=== PATIENT | male | born 1925 | race Hispanic/Latino ===

== ENCOUNTER 2016-11-14 20:22 | Inpatient (IN) | payer MEDICARE ==
[2016-11-14 20:23] VITALS: BMI 23.3
--- NOTE | 2016-11-14 21:17 | ED PDOC ---
HPI: Trauma/Fall - HPI Time Seen by Provider: 11/14/16 20:33 Chief Complaint (Nursing): Fever Chief Complaint (Provider): Fever History Per: Family ( and daughter) History/Exam Limitations: no limitations Onset/Duration Of Symptoms: Mins (prior to arrival) Additional Complaint(s): Mik Milligan is a 89 year old male with previous medical history of dementia and atrial fibrillation, who presents to the emergency department for an evaluation of 102 degree fever (tympanic reading) associated with fall type injuries, right foot pain, excessive gas and intermittent right-sided abdominal pain. Denied cough, nausea, vomiting, head injury, chest pain or shortness of breath. Per daughter, patient has been falling out of bed often due to movements while sleeping ongoing for 2-3 months. Patient's family reported giving Tylenol to patient to reduce fever prior to arrival and that most symptoms has resolved upon arrival to ED. PMD: Dustin Gresham MD Past Medical History Reviewed: Historical Data, Nursing Documentation, Vital Signs Vital Signs: Last Vital Signs Temp 99.5 F 11/14/16 21:27 Pulse 72 11/14/16 20:27 Resp 18 11/14/16 20:27 BP 111/69 11/14/16 20:27 Pulse Ox 94 L 11/15/16 00:06 - Medical History PMH: Anemia, Atrial Fibrillation, Cardia Arrhythmia, Dementia (with periods of agitation and confusion) Denies: HIV, Chronic Kidney Disease - Surgical History Surgical History: Pacemaker - Family History Family History: States: Unknown Family Hx - Social History Current smoker - smoking cessation education provided: No Ex-Smoker (has not smoked in the last 12 months): Yes Alcohol: None Drugs: Denies - Home Medications Home Medications: Ambulatory Orders Medication Instructions Recorded Digoxin [Lanoxin] 0.25 mg PO DAILY 09/08/15 Dorzolamide HCl/Timolol Maleat 22.3 mg BOTHEYES DAILY 09/08/15 [Dorzolamide-Timolol Eye Drops] Escitalopram [Lexapro] 10 mg PO DAILY 09/08/15 Folic Acid 1 mg PO DAILY 09/08/15 Omeprazole [Prilosec] 20 mg PO DAILY 09/08/15 QUEtiapine [Seroquel XR] 50 mg PO HS 09/08/15 Tamsulosin [Flomax] 0.4 mg PO HS 09/08/15 levETIRAcetam [Keppra] 1,000 mg PO HS 09/08/15 [place]-3/Dha/Epa/Fish Oil [Fish Oil 1,000 mg PO DAILY 11/14/16 1,600 mg/5 ml Liquid] - Allergies Allergies/Adverse Reactions: Allergies Allergy/AdvReac Type Severity Reaction Status Date / Time Iodinated Contrast- Oral and Allergy Intermediate RASH Verified 09/08/15 17:07 IV Dye Review of Systems ROS Statement: Except As Marked, All Systems Reviewed And Found Negative Constitutional: Positive for: Fever Cardiovascular: Negative for: Chest Pain Respiratory: Negative for: Cough, Shortness of Breath Gastrointestinal: Positive for: Abdominal Pain (right-side; intermittently), Other (excessive gas). Negative for: Nausea, Vomiting Musculoskeletal: Positive for: Foot Pain (right) Neurological: Negative for: Other (head injury) Physical Exam - Reviewed Nursing Documentation Reviewed: Yes Vital Signs Reviewed: Yes - Physical Exam Appears: Positive for: Well (but elderly), Non-toxic, No Acute Distress Head Exam: Positive for: ATRAUMATIC, NORMAL INSPECTION, NORMOCEPHALIC Skin: Positive for: Jaundice ENT: Positive for: Normal ENT Inspection Neck: Positive for: Normal, Painless ROM, Supple Cardiovascular/Chest: Positive for: Regular Rate, Rhythm. Negative for: Chest Non Tender Respiratory: Positive for: Normal Breath Sounds. Negative for: Crackles, Rales , Rhonchi, Wheezing, Respiratory Distress Gastrointestinal/Abdominal: Positive for: Normal Exam, Bowel Sounds, Soft. Negative for: Tenderness Neurologic/Psych: Positive for: Alert - Laboratory Results Result Diagrams: 11/14/16 21:24 11/14/16 21:24 - ECG O2 Sat by Pulse Oximetry: 94 (RA) Pulse Ox Interpretation: Normal Medical Decision Making Medical Decision Making: Initial Impression: Fever Differential diagnosis: UTI vs. gas pain vs. viral infection Initial Plan: * CT ABD/Pelvis with IV contrast * CMP * Lactic acid * CBC * CXR * Urine culture * ED rectal temp * Influenza A B * Rapid strep * Urinalysis Time: 2152 --CXR FINDINGS: Tubes and catheters: There is a unipolar pacemaker, apparatus in the left chest wall. The Heart, mediastinum and riley: Heart size is normal. There is a prosthetic valve. There are calcifications in the aortic knob. Aorta is mildly uncoiled. Hilar contours are unremarkable Vascularity: Pulmonary vascularity is normal. Lungs: There is mild diffuse increase in interstitial markings. There is no lobar or segmental consolidation. Pleural spaces: There is pleural thickening along the right chest wall. There are no definite effusions. Bony structures: Bony structures are osteopenic. There is median sternotomy. Osteopenia limits evaluation of the ribs. IMPRESSION: Normal heart size with pacemaker and prosthetic valve; atherosclerotic disease; no congestive failure or focal infiltrate Time: 2229 --Allergy reviewed. Confirmed that patient is not allergic to IV contrast dye. Time: 2340 CT AP IMPRESSION: Distended gallbladder with stones and pericholecystic fluid suggest cholecystitis; mildly dilated common duct with distal tapering, masslike region in the descending duodenum with focal calcification possibly stone at the ampulla; fatty liver, splenomegaly, mild ileus, no obstruction; right inguinal hernia containing fat and fluid Time: 2345 Case discussed with surgical services coordinator airport operations officer. Time: [address] Alcocer, hospitalist airport operations officer. Time: Blood cultures drawn. Zosyn 3.375gm ordered. NS 1L IV ordered. Time: 5 Dr. Alcocer at bedside to evaluate patient. Patient admitted under Dr. Alcocer for cholecystitis. Scribe Attestation: Documented by Renetta Man and Donna Lobo, acting as scribes for Lorne Rodriguez MD. Provider Scribe Attestation: All medical record entries made by the Scribe were at my direction and personally dictated by me. I have reviewed the chart and agree that the record accurately reflects my personal performance of the history, physical exam, medical decision making, and the department course for this patient. I have also personally directed, reviewed, and agree with the discharge instructions and disposition. Disposition - Clinical Impression Clinical Impression: Cholecystitis - Disposition Disposition Time: 00:00 Condition: STABLE Forms: [employer] (Mac[place])
[2016-11-14 21:36] LABS: BASO % 0.4 % (0.0-2.0); EOS % 0.2 % (0.0-4.0); HEMATOCRIT 37.8 % (35.0-51.0); LYMPH # 1.1 K/uL (1.0-4.3); LYMPH % 15.1 % (20.0-40.0); MEAN CELL VOLUME 93.3 fl (80.0-94.0); MEAN CORPUSCULAR HEMOGLOBIN 30.1 pg (27.0-31.0); MEAN CORPUSCULAR HGB CONC 32.3 g/dL (33.0-37.0); MEAN PLATELET VOLUME 11.6 fl (7.2-11.7); MONO # 0.9 K/uL (0.0-0.8); MONO % 12.6 % (0.0-10.0); NEUT # 5.3 K/uL (1.8-7.0); NEUT % 71.7 % (50.0-75.0); NRBC % 0.1 % (0.0-0.0); RED CELL DISTRIBUTION WIDTH 14.5 % (11.5-14.5); WHITE BLOOD COUNT 7.4 K/uL (4.8-10.8)
[2016-11-14 21:51] LABS: ALB/GLOB RATIO 1.1 (1.0-2.1); ALKALINE PHOSPHATASE 198 U/L (38-126); ALT/SGPT 191 U/L (21-72); AST/SGOT 171 U/L (17-59); BILIRUBIN,TOTAL 8.8 mg/dl (0.2-1.3); BLOOD UREA NITROGEN 11 mg/dl (9-20); CALCIUM 9.4 mg/dL (8.4-10.2); CARBON DIOXIDE 31 mmol/L (22-30); CHLORIDE 95 mmol/L (98-107); GFR AFRICAN-AMERICAN > 60; GLUCOSE,RANDOM 173 mg/dL (75-110); POTASSIUM 4.4 MMOL/L (3.6-5.0); SODIUM 137 mmol/l (132-148); TOTAL PROTEIN 8.5 G/DL (6.3-8.2)
--- NOTE | 2016-11-14 21:53 | RAD ---
EXAM: XR Chest, 2 Views EXAM DATE/TIME: 11/14/2016 8:48 PM CLINICAL HISTORY: 89 years old, male; Signs and symptoms; Other: R/O pneumonia; Additional info: S/P fall, abd pain TECHNIQUE: Frontal and lateral views of the chest. COMPARISON: There are no prior studies for comparison. FINDINGS: Tubes and catheters: There is a unipolar pacemaker, apparatus in the left chest wall. The Heart, mediastinum and riley: Heart size is normal. There is a prosthetic valve. There are calcifications in the aortic knob. Aorta is mildly uncoiled. Hilar contours are unremarkable Vascularity: Pulmonary vascularity is normal. Lungs: There is mild diffuse increase in interstitial markings. There is no lobar or segmental consolidation. Pleural spaces: There is pleural thickening along the right chest wall. There are no definite effusions. Bony structures: Bony structures are osteopenic. There is median sternotomy. Osteopenia limits evaluation of the ribs. IMPRESSION: Normal heart size with pacemaker and prosthetic valve; atherosclerotic disease; no congestive failure or focal infiltrate
[2016-11-14 22:03] LABS: RBC URINE 6 /hpf (0-3); URINE BACTERIA RARE (<OCC); URINE BILIRUBIN MODERATE (NEGATIVE); URINE BLOOD NEGATIVE (NEGATIVE); URINE COLOR AMBER (YELLOW); URINE GLUCOSE (UA) NEG (Normal); URINE KETONE NEGATIVE (NEGATIVE); URINE LEUKOCYTE ESTERASE NEG Leu/uL (Negative); URINE PROTEIN 100 mg/dL (NEGATIVE); WBC URINE 5 /hpf (0-5)
[2016-11-14] MEDS ORDERED: Iohexol 300 100 ML IJ ONE (22:08)
[2016-11-14] MEDS ORDERED: Sodium Chloride 0.9% 50 ML IV ONE (22:08)
[2016-11-14] MEDS ORDERED: Piperacillin/Tazobact 3.375 GM in Sodium Chloride 0.9% 100 ML IVPB STA (23:52)
[2016-11-15] MEDS ORDERED: Piperacillin/Tazobact 3.375 gm Inj IVPB ONE (00:18)
[2016-11-15] MEDS: Sodium Chloride 0.9% 1,000 ML IV SCH ×4 (00:26→17:30)
--- NOTE | 2016-11-15 02:03 | CP.PCM.HP ---
History of Present Illness - History of Present Illness History of Present Illness: CC: abd pain, fall, fever History largely via daughter as patient is sleepy HPI: This is an 89 y/o male with MHx sig for A fib, valvular heart disease, and seizure disorder among other things. He is brought in today after he was noted to be weak, falling off the bed, with fever and with abdominal pain. Per patient , abdominal pain is localized more to the right and wraps around rib cage, has been going on for about a week. There is no n/v, but there has been diarrhea. He also had a fever of 102 today. Nothing makes symptoms better or worse. Patient denies CP/SOB. 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 SHx: s/p PPM, valvular surgery, brain surgery (NOS) Allergies: contrast dyes Medications: As per med rec Family Hx: no relevant findings Social Hx: Lives with family, prior history of heavy EtOH use and tobacco use but quit many years ago Surrogate: daughter, Jazmine Rivera, Present on Admission - Present on Admission Any Indicators Present on Admission: No Past Patient History - Past Medical History & Family History Past Medical History?: Yes - Past Social History Alcohol: None Drugs: Denies - CARDIAC Hx Atrial Fibrillation: Yes Hx Cardia Arrhythmia: Yes Hx Pacemaker: Yes - PULMONARY Hx Respiratory Disorders: No - NEUROLOGICAL Hx Dementia: Yes (with periods of agitation and confusion) - HEENT Hx Macular Degeneration: Yes - RENAL Hx Chronic Kidney Disease: No - ENDOCRINE/METABOLIC Hx Endocrine Disorders: No - HEMATOLOGICAL/ONCOLOGICAL Hx Anemia: Yes Hx Human Immunodeficiency Virus (HIV): No - INTEGUMENTARY Hx Dermatological Problems: No - MUSCULOSKELETAL/RHEUMATOLOGICAL Hx Falls: Yes (2008) - GASTROINTESTINAL Hx Gastrointestinal Disorders: No - GENITOURINARY/GYNECOLOGICAL Hx Genitourinary Disorders: No - PSYCHIATRIC Hx Psychophysiologic Disorder: No Hx Substance Use: No - SURGICAL HISTORY Hx Surgeries: Yes Other/Comment: evacuation of subdural hematoma, pacemaker, aortic valve replacement - ANESTHESIA Hx Anesthesia: Yes Hx Anesthesia Reactions: No Hx Malignant Hyperthermia: No Meds Allergies/Adverse Reactions: Allergies Allergy/AdvReac Type Severity Reaction Status Date / Time Iodinated Contrast- Oral and Allergy Intermediate RASH Verified 07/03/16 17:07 IV Dye Physical Exam - Constitutional Appears: No Acute Distress - Head Exam Head Exam: ATRAUMATIC, NORMOCEPHALIC - Eye Exam Eye Exam: EOMI, PERRL - ENT Exam ENT Exam: Mucous Membranes Moist - Neck Exam Neck exam: Positive for: Full Rom - Respiratory Exam Respiratory Exam: Clear to Auscultation Bilateral, NORMAL BREATHING PATTERN - Cardiovascular Exam Cardiovascular Exam: REGULAR RHYTHM, +S1, +S2, Systolic Murmur Additional comments: RUSB - GI/Abdominal Exam GI & Abdominal Exam: Normal Bowel Sounds, Soft - Extremities Exam Extremities exam: Positive for: full ROM, normal inspection - Neurological Exam Neurological exam: CN II-XII Intact Additional comments: awake, complies with exam, follows commands - Skin Skin Exam: Dry, Warm Results - Vital Signs Recent Vital Signs: Last Vital Signs Temp 99.0 F 11/15/16 00:53 Pulse 60 11/15/16 00:53 Resp 16 11/15/16 00:53 BP 96/49 L 11/15/16 00:53 Pulse Ox 98 11/15/16 00:53 - Labs Result Diagrams: 11/14/16 21:24 11/14/16 21:24 Assessment & Plan (1) Cholecystitis Assessment and Plan: 89 y/o male presenting with abd pain and fall, found to have cholecystitis. 1) Cholecystitis -NPO, IVF -Zosyn IV -Zofran for n/v -GI and Surgery consult in AM -Cardiac clearance w/Mp if any procedure necessary 2) Fall -- no sequalae currently 3) COPD -- stable, no acute issues 4) A fib -- stable cont current medications 5) DVT PPx --SCDs only for now Status: Acute (2) COPD (chronic obstructive pulmonary disease) Status: Chronic Priority: High (3) Fall Status: Acute (4) A-fib Status: Acute (5) DVT prophylaxis Status: Acute
[2016-11-15 06:36] LABS: HEMATOCRIT 32.1 % (35.0-51.0); MEAN CELL VOLUME 92.6 fl (80.0-94.0); MEAN CORPUSCULAR HEMOGLOBIN 30.7 pg (27.0-31.0); MEAN CORPUSCULAR HGB CONC 33.2 g/dL (33.0-37.0); RED CELL DISTRIBUTION WIDTH 14.7 % (11.5-14.5); WHITE BLOOD COUNT 4.4 K/uL (4.8-10.8)
[2016-11-15 06:50] LABS: ALB/GLOB RATIO 1.1 (1.0-2.1); ALKALINE PHOSPHATASE 158 U/L (38-126); ALT/SGPT 144 U/L (21-72); AST/SGOT 103 U/L (17-59); BILIRUBIN,TOTAL 7.7 mg/dl (0.2-1.3); BLOOD UREA NITROGEN 11 mg/dl (9-20); CALCIUM 8.7 mg/dL (8.4-10.2); CARBON DIOXIDE 33 mmol/L (22-30); CHLORIDE 99 mmol/L (98-107); GFR AFRICAN-AMERICAN > 60; GLUCOSE,RANDOM 130 mg/dL (75-110); POTASSIUM 3.7 MMOL/L (3.6-5.0); SODIUM 140 mmol/l (132-148); TOTAL PROTEIN 6.9 G/DL (6.3-8.2)
--- NOTE | 2016-11-15 08:18 | CP.PCM.CON ---
<IrelandHaley garrison - Last Filed: 11/15/16 08:13> History of Present Illness - History of Present Illness History of Present Illness: General Surgery - Dr. Ruth 89 yo M w/ hx of seizure disorder, COPD, Afib, AVR, PM, brought to ED by family for weakness, fevers, and abdominal pain. Pt states the abdominal pain was going on for a few weeks, but he is unaware if it was getting any worse. The pain is located in the upper abdomen, slightly more on the right side. He denies any N/V, unable to give information regarding bowel function but prior reports indicate pt. was having some diarrhea. Patient denies any SOB/Chest pain or difficulty urinating. 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 PSH: evacuation of subdural hematoma, Aortic Valve replacement, Pacemaker Allergic to contrast Meds as per chart Lives w/ family, hx of heavy ETOH and Tobacco use but quit years ago Review of Systems - Review of Systems All systems: reviewed and no additional remarkable complaints except (as per HPI ) Past Patient History - Past Medical History & Family History Past Medical History?: Yes - Past Social History Alcohol: None Drugs: Denies - CARDIAC Hx Atrial Fibrillation: Yes Hx Cardia Arrhythmia: Yes Hx Pacemaker: Yes - PULMONARY Hx Respiratory Disorders: No - NEUROLOGICAL Hx Dementia: Yes (with periods of agitation and confusion) - HEENT Hx Macular Degeneration: Yes - RENAL Hx Chronic Kidney Disease: No - ENDOCRINE/METABOLIC Hx Endocrine Disorders: No - HEMATOLOGICAL/ONCOLOGICAL Hx Anemia: Yes Hx Human Immunodeficiency Virus (HIV): No - INTEGUMENTARY Hx Dermatological Problems: No - MUSCULOSKELETAL/RHEUMATOLOGICAL Hx Falls: Yes (2008) - GASTROINTESTINAL Hx Gastrointestinal Disorders: No - GENITOURINARY/GYNECOLOGICAL Hx Genitourinary Disorders: No - PSYCHIATRIC Hx Psychophysiologic Disorder: No Hx Substance Use: No - SURGICAL HISTORY Hx Surgeries: Yes Other/Comment: evacuation of subdural hematoma, pacemaker, aortic valve replacement - ANESTHESIA Hx Anesthesia: Yes Hx Anesthesia Reactions: No Hx Malignant Hyperthermia: No Meds Allergies/Adverse Reactions: Allergies Allergy/AdvReac Type Severity Reaction Status Date / Time Iodinated Contrast- Oral and Allergy Intermediate RASH Verified 09/08/15 17:07 IV Dye - Medications Medications: Current Medications Digoxin (Lanoxin) 0.25 mg PO DAILY [facility] Escitalopram Oxalate (Lexapro) 10 mg PO DAILY [facility] Folic Acid (Folic Acid) 1 mg PO DAILY [facility] Home Med (Dorzolamide Hcl/Timolol Maleat [Dorzolamide-Timolol Eye Drops]) 22.3 mg BOTHEYES DAILY [facility] Home Med ([place]-3/Dha/Epa/Fish Oil [Fish Oil 1,600 Mg/5 Ml Liquid]) 1,000 mg PO DAILY [facility] Sodium Chloride (Sodium Chloride 0.9%) 1,000 mls @ 75 mls/hr IV .[id number] [facility] Stop: 11/16/16 02:24 Last Admin: 11/15/16 00:26 Dose: 75 mls/hr Piperacillin Sod/Tazobactam (Sod 2.25 gm/ Sodium Chloride) 100 mls @ 100 mls/ hr IVPB Q8 [facility] Levetiracetam (Keppra) 1,000 mg PO HS [facility] Ondansetron HCl (Zofran Inj) 4 mg IVP Q6 PRN PRN Reason: Nausea/Vomiting Pantoprazole Sodium (Protonix Ec Tab) 40 mg PO DAILY [facility] Quetiapine Fumarate (Seroquel) 50 mg PO HS [facility] Tamsulosin HCl (Flomax) 0.4 mg PO HS [facility] Physical Exam - Constitutional Appears: No Acute Distress - Head Exam Head Exam: ATRAUMATIC, NORMAL INSPECTION, NORMOCEPHALIC - Eye Exam Eye Exam: EOMI, Scleral icterus - ENT Exam ENT Exam: Mucous Membranes Dry - Respiratory Exam Respiratory Exam: NORMAL BREATHING PATTERN. absent: Respiratory Distress - GI/Abdominal Exam GI & Abdominal Exam: Guarding (RUQ), Soft, Tenderness (upper abdomen, RUQ). absent: Distended, Rigid Additional comments: diastasis - Extremities Exam Extremities exam: Negative for: calf tenderness, pedal edema - Neurological Exam Neurological exam: Alert - Skin Skin Exam: Dry, Intact Additional comments: jaundice Results - Vital Signs Recent Vital Signs: Last Vital Signs Temp 98.5 F 11/15/16 01:30 Pulse 60 11/15/16 02:14 Resp 20 11/15/16 02:14 BP 106/52 L 11/15/16 01:30 Pulse Ox 95 11/15/16 02:14 - Labs Result Diagrams: 11/15/16 05:30 11/15/16 05:30 Labs: Laboratory Results - last 24 hr 11/15/16 11/15/16 05:30 05:30 WBC 4.4 L RBC 3.46 L Hgb 10.6 L Hct 32.1 L MCV 92.6 MCH 30.7 MCHC 33.2 RDW 14.7 H Plt Count 56 L D Sodium 140 Potassium 3.7 Chloride 99 Carbon Dioxide 33 H Anion Gap 12 BUN 11 Creatinine 0.8 Est GFR ( Amer) > 60 Est GFR (Non-Af Amer) > 60 Random Glucose 130 H Calcium 8.7 Total Bilirubin 7.7 H AST 103 H D ALT 144 H D Alkaline Phosphatase 158 H D Total Protein 6.9 Albumin 3.6 Globulin 3.3 Albumin/Globulin Ratio 1.1 - Imaging and Cardiology CT scan - abdomen Status: Image reviewed by me, Report reviewed by me Assessment & Plan - Assessment and Plan (Free Text) Assessment: 89yo M w/ extensive medical hx, w/ likely acute on chronic cholecystitis and hyperbilirubinemia -Unable to obtain MRI d/t pacemaker -U/S GB and CBD to further evaluate -HIDA scan to eval cystic duct obstruction -May need IR placement of cholecystostomy tube as pt is high risk surgical candidate -Continue NPO, IVF, Pain control and IV Abx -Will DW Dr Faraz Ireland PGy3 <David Ruth - Last Filed: 11/15/16 21:34> Meds - Medications Medications: Current Medications Digoxin (Lanoxin) 0.25 mg PO DAILY [facility] Last Admin: 11/15/16 08:27 Dose: 0.25 mg Escitalopram Oxalate (Lexapro) 10 mg PO DAILY [facility] Last Admin: 11/15/16 08:28 Dose: 10 mg Folic Acid (Folic Acid) 1 mg PO DAILY [facility] Last Admin: 11/15/16 08:27 Dose: 1 mg Home Med (Dorzolamide Hcl/Timolol Maleat [Dorzolamide-Timolol Eye Drops]) 1 drop BOTHEYES DAILY [facility] Home Med ([place]-3/Dha/Epa/Fish Oil [Fish Oil 1,600 Mg/5 Ml Liquid]) 5 ml PO DAILY [facility] Sodium Chloride (Sodium Chloride 0.9%) 1,000 mls @ 75 mls/hr IV .[id number] [facility] Stop: 11/16/16 02:24 Last Admin: 11/15/16 12:18 Dose: Not Given Piperacillin Sod/Tazobactam (Sod 2.25 gm/ Sodium Chloride) 100 mls @ 100 mls/ hr IVPB Q8 [facility] Last Admin: 11/15/16 16:33 Dose: 100 mls/hr Sodium Chloride (Sodium Chloride 0.9%) 1,000 mls @ 100 mls/hr IV .Q10H [facility] Stop: 11/16/16 08:26 Last Admin: 11/15/16 17:30 Dose: Not Given Levetiracetam (Keppra) 1,000 mg PO HS [facility] Ondansetron HCl (Zofran Inj) 4 mg IVP Q6 PRN PRN Reason: Nausea/Vomiting Pantoprazole Sodium (Protonix Ec Tab) 40 mg PO DAILY [facility] Last Admin: 11/15/16 08:27 Dose: 40 mg Quetiapine Fumarate (Seroquel) 50 mg PO HS [facility] Tamsulosin HCl (Flomax) 0.4 mg PO HS [facility] Results - Vital Signs Recent Vital Signs: Last Vital Signs Temp 99.5 F 11/15/16 15:33 Pulse 63 11/15/16 15:33 Resp 17 11/15/16 15:33 BP 112/53 L 11/15/16 15:33 Pulse Ox 94 L 11/15/16 15:33 - Labs Result Diagrams: 11/15/16 05:30 11/15/16 05:30 Labs: Laboratory Results - last 24 hr 11/15/16 11/15/16 05:30 05:30 WBC 4.4 L RBC 3.46 L Hgb 10.6 L Hct 32.1 L MCV 92.6 MCH 30.7 MCHC 33.2 RDW 14.7 H Plt Count 56 L D Sodium 140 Potassium 3.7 Chloride 99 Carbon Dioxide 33 H Anion Gap 12 BUN 11 Creatinine 0.8 Est GFR ( Amer) > 60 Est GFR (Non-Af Amer) > 60 Random Glucose 130 H Calcium 8.7 Total Bilirubin 7.7 H AST 103 H D ALT 144 H D Alkaline Phosphatase 158 H D Total Protein 6.9 Albumin 3.6 Globulin 3.3 Albumin/Globulin Ratio 1.1 Attending/Attestation - Attestation I have personally seen and examined this patient.: Yes I have fully participated in the care of the patient.: Yes I have reviewed all pertinent clinical information: Yes Notes (Text): 11/15/16 21:32 Pt was seen and examined at bedside Agree with above note and assessment Pt with cholelithiasis and Dilated CBD RUQ tenderness Labs and Radiology reviewed. HIDA scan tomorro Repeat LFTs C.w IV antibiotics Plan d.w pt and Hospitalist in detail Risk and benefit explained in detail.
[2016-11-15] MEDS: Pantoprazole 40 mg EC Tab PO SCH (08:27)
[2016-11-15] MEDS: Digoxin 250 mcg (0.25 mg) Tab PO SCH (08:27)
[2016-11-15] MEDS ORDERED: EPA PO SCH (09:00)
[2016-11-15] MEDS ORDERED: OMEGA PO SCH (09:00)
[2016-11-15] MEDS ORDERED: DHA PO SCH (09:00)
[2016-11-15] MEDS ORDERED: FISH OIL PO SCH (09:00)
[2016-11-15] MEDS ORDERED: TIMOLOL MALEAT BOTHEYES SCH (09:00)
[2016-11-15] MEDS ORDERED: DORZOLAMIDE HCL BOTHEYES SCH (09:00)
[2016-11-15] MEDS ORDERED: [UNRECOGNIZED DRUG - OTHER] BOTHEYES SCH (09:00)
[2016-11-15] MEDS ORDERED: Enoxaparin 40 mg Syringe SC SCH (09:00)
--- NOTE | 2016-11-15 10:08 | CP.PCM.CON ---
History of Present Illness - History of Present Illness History of Present Illness: 89 yo male found to be very weak with family. Pain is localized to right abdomen Had temp to 102 earlier Review of Systems - Constitutional Constitutional: Chills - EENT Eyes: absent: Blind Spots Ears: absent: Decreased Hearing Nose/Mouth/Throat: absent: Epistaxis - Cardiovascular Cardiovascular: absent: Chest Pain - Respiratory Respiratory: absent: Cough - Gastrointestinal Gastrointestinal: As Per HPI Past Patient History - Past Medical History & Family History Past Medical History?: Yes - Past Social History Alcohol: None Drugs: Denies - CARDIAC Hx Atrial Fibrillation: Yes Hx Cardia Arrhythmia: Yes Hx Pacemaker: Yes - PULMONARY Hx Respiratory Disorders: No - NEUROLOGICAL Hx Dementia: Yes (with periods of agitation and confusion) - HEENT Hx Macular Degeneration: Yes - RENAL Hx Chronic Kidney Disease: No - ENDOCRINE/METABOLIC Hx Endocrine Disorders: No - HEMATOLOGICAL/ONCOLOGICAL Hx Anemia: Yes Hx Human Immunodeficiency Virus (HIV): No - INTEGUMENTARY Hx Dermatological Problems: No - MUSCULOSKELETAL/RHEUMATOLOGICAL Hx Falls: Yes (2008) - GASTROINTESTINAL Hx Gastrointestinal Disorders: No - GENITOURINARY/GYNECOLOGICAL Hx Genitourinary Disorders: No - PSYCHIATRIC Hx Psychophysiologic Disorder: No Hx Substance Use: No - SURGICAL HISTORY Hx Surgeries: Yes Other/Comment: evacuation of subdural hematoma, pacemaker, aortic valve replacement - ANESTHESIA Hx Anesthesia: Yes Hx Anesthesia Reactions: No Hx Malignant Hyperthermia: No Meds Allergies/Adverse Reactions: Allergies Allergy/AdvReac Type Severity Reaction Status Date / Time Iodinated Contrast- Oral and Allergy Intermediate RASH Verified 09/08/15 17:07 IV Dye - Medications Medications: Current Medications Digoxin (Lanoxin) 0.25 mg PO DAILY [facility] Last Admin: 11/15/16 08:27 Dose: 0.25 mg Enoxaparin Sodium (Lovenox) 40 mg SC DAILY [facility] PRN Reason: Protocol Escitalopram Oxalate (Lexapro) 10 mg PO DAILY [facility] Last Admin: 11/15/16 08:28 Dose: 10 mg Folic Acid (Folic Acid) 1 mg PO DAILY [facility] Last Admin: 11/15/16 08:27 Dose: 1 mg Home Med (Dorzolamide Hcl/Timolol Maleat [Dorzolamide-Timolol Eye Drops]) 22.3 mg BOTHEYES DAILY [facility] Home Med ([place]-3/Dha/Epa/Fish Oil [Fish Oil 1,600 Mg/5 Ml Liquid]) 1,000 mg PO DAILY [facility] Sodium Chloride (Sodium Chloride 0.9%) 1,000 mls @ 75 mls/hr IV .[id number] [facility] Stop: 11/16/16 02:24 Last Admin: 11/15/16 00:26 Dose: 75 mls/hr Piperacillin Sod/Tazobactam (Sod 2.25 gm/ Sodium Chloride) 100 mls @ 100 mls/ hr IVPB Q8 [facility] Sodium Chloride (Sodium Chloride 0.9%) 1,000 mls @ 100 mls/hr IV .Q10H [facility] Stop: 11/16/16 08:26 Levetiracetam (Keppra) 1,000 mg PO HS [facility] Ondansetron HCl (Zofran Inj) 4 mg IVP Q6 PRN PRN Reason: Nausea/Vomiting Pantoprazole Sodium (Protonix Ec Tab) 40 mg PO DAILY [facility] Last Admin: 11/15/16 08:27 Dose: 40 mg Quetiapine Fumarate (Seroquel) 50 mg PO HS [facility] Tamsulosin HCl (Flomax) 0.4 mg PO HS [facility] Physical Exam - Constitutional Appears: Chronically Ill - Head Exam Head Exam: ATRAUMATIC - Eye Exam Eye Exam: Normal appearance - ENT Exam ENT Exam: Mucous Membranes Moist - Neck Exam Neck exam: Positive for: Normal Inspection - Respiratory Exam Respiratory Exam: Clear to Auscultation Bilateral - Cardiovascular Exam Cardiovascular Exam: REGULAR RHYTHM, +S1, +S2 - GI/Abdominal Exam GI & Abdominal Exam: Normal Bowel Sounds, Soft, Tenderness Additional comments: RUQ tenderness Results - Vital Signs Recent Vital Signs: Last Vital Signs Temp 98.7 F 11/15/16 08:38 Pulse 61 11/15/16 08:38 Resp 20 11/15/16 08:38 BP 104/51 L 11/15/16 08:38 Pulse Ox 96 11/15/16 08:38 - Labs Result Diagrams: 11/15/16 05:30 11/15/16 05:30 Labs: Laboratory Results - last 24 hr 11/15/16 11/15/16 05:30 05:30 WBC 4.4 L RBC 3.46 L Hgb 10.6 L Hct 32.1 L MCV 92.6 MCH 30.7 MCHC 33.2 RDW 14.7 H Plt Count 56 L D Sodium 140 Potassium 3.7 Chloride 99 Carbon Dioxide 33 H Anion Gap 12 BUN 11 Creatinine 0.8 Est GFR ( Amer) > 60 Est GFR (Non-Af Amer) > 60 Random Glucose 130 H Calcium 8.7 Total Bilirubin 7.7 H AST 103 H D ALT 144 H D Alkaline Phosphatase 158 H D Total Protein 6.9 Albumin 3.6 Globulin 3.3 Albumin/Globulin Ratio 1.1 Assessment & Plan (1) Cholecystitis Assessment and Plan: CT c/w cholecystitis. Elevated bili likely due to sepsis or passed stone. Alk Phos coming down and CT showed just mild duct dilation. No indication for ERCP. Status: Acute
--- NOTE | 2016-11-15 10:40 | CT ---
PROCEDURE: CT Abdomen and Pelvis with contrast HISTORY: abd pain, elevated LFTs COMPARISON: None. TECHNIQUE: Contrast dose: 95 cc Omnipaque 300 Radiation dose: Total exam DLP = 359.22 mGy-cm. This CT exam was performed using one or more of the following dose reduction techniques: Automated exposure control, adjustment of the mA and/or kV according to patient size, and/or use of iterative reconstruction technique. FINDINGS: LOWER THORAX: Unremarkable. LIVER: Hepatic steatosis. No focal masses. No intrahepatic bile duct dilatation or perihepatic ascites. GALLBLADDER AND BILE DUCTS: Distended gallbladder, gallstones, pericholecystic fluid presumptive evidence for acute cholecystitis. PANCREAS: Unremarkable. No gross lesion or ductal dilatation. SPLEEN: Splenomegaly. Orthogonal measurements on coronal images 7.7 x 13.3 cm. Similar findings identified on a CT scan performed 09/10/2015. ADRENALS: Unremarkable. No mass. KIDNEYS AND URETERS: Unremarkable. No hydronephrosis. No solid mass. Incidental finding(s): Bilateral simple renal cysts. VASCULATURE: Unremarkable. No aortic aneurysm. BOWEL: Unremarkable. No obstruction. No gross mural thickening. APPENDIX: Normal appendix. PERITONEUM: Unremarkable. No free fluid. No free air. LYMPH NODES: Unremarkable. No enlarged lymph nodes. BLADDER: Unremarkable. REPRODUCTIVE: Unremarkable. BONES: No acute fracture. OTHER FINDINGS: None. IMPRESSION: Presumptive evidence for acute cholecystitis. This includes gallstones, distended gallbladder, gallbladder wall thickening and pericholecystic fluid. Additional benign and/or incidental findings described above. Concordant results (preliminary interpretation) provided by [facility]. Procedure Completed: 22:52 Preliminary ([facility]) Report: Dictated and Authenticated: 23:41 Final Interpretation: 10:38 November 15, 2016.
--- NOTE | 2016-11-15 11:53 | US ---
HISTORY: eval for cholecystitis and poss. CBD stone COMPARISON: November 14, 2016. CT abdomen TECHNIQUE: Sonographic evaluation of the right upper quadrant of the abdomen. FINDINGS: LIVER: Measures and pelvis 14.8 cm in length. Hepatopedal blood flow. Fatty infiltration manifest ultrasonographically as increased echogenicity of the liver parenchyma. No mass. No intrahepatic bile duct dilatation. GALLBLADDER: Dilated gallbladder, cholelithiasis, sludge in gallbladder wall thickening. Pericholecystic fluid identified. COMMON BILE DUCT: Measures 9.7 mm. No stones. Distal duct is not visualized obscured by overlying bowel gas. PANCREAS: Unremarkable as visualized. No mass. No ductal dilatation. RIGHT KIDNEY: Measures 6 x 9.6 cm in length. Normal echogenicity. No calculus, mass, or hydronephrosis. AORTA: No aneurysmal dilatation. IVC: Unremarkable. OTHER FINDINGS: None . IMPRESSION: Cholelithiasis, presumptive evidence for acute cholecystitis.
[2016-11-16 00:45] VITALS: RESP 20
[2016-11-16] MEDS: Sodium Chloride 0.9% 1,000 ML IV SCH (05:59)
[2016-11-16 07:40] LABS: HEMATOCRIT 31.2 % (35.0-51.0); MEAN CELL VOLUME 94.1 fl (80.0-94.0); MEAN CORPUSCULAR HEMOGLOBIN 30.4 pg (27.0-31.0); MEAN CORPUSCULAR HGB CONC 32.3 g/dL (33.0-37.0); RED CELL DISTRIBUTION WIDTH 14.7 % (11.5-14.5); WHITE BLOOD COUNT 3.2 K/uL (4.8-10.8)
[2016-11-16 07:42] LABS: ALB/GLOB RATIO 1.1 (1.0-2.1); ALKALINE PHOSPHATASE 142 U/L (38-126); ALT/SGPT 100 U/L (21-72); AST/SGOT 53 U/L (17-59); BILIRUBIN,TOTAL 4.2 mg/dl (0.2-1.3); BLOOD UREA NITROGEN 15 mg/dl (9-20); CALCIUM 8.5 mg/dL (8.4-10.2); CARBON DIOXIDE 28 mmol/L (22-30); CHLORIDE 103 mmol/L (98-107); GFR AFRICAN-AMERICAN > 60; GLUCOSE,RANDOM 93 mg/dL (75-110); POTASSIUM 3.9 MMOL/L (3.6-5.0); SODIUM 140 mmol/l (132-148); TOTAL PROTEIN 6.8 G/DL (6.3-8.2)
--- NOTE | 2016-11-16 08:17 | CP.PCM.PN ---
<Dee Randall - Last Filed: 11/16/16 08:19> Subjective - Date & Time of Evaluation Date of Evaluation: 11/16/16 Time of Evaluation: 06:50 - Subjective Subjective: Patient seen and examined this AM. WILMERO. Patient reports some persistent pain in his abdomen. Objective - Vital Signs/Intake and Output Vital Signs (last 24 hours): Temp Pulse Resp BP Pulse Ox 98.6 F 61 20 132/70 96 11/16/16 07:32 11/16/16 07:32 11/16/16 07:32 11/16/16 07:32 11/16/16 07:32 Intake and Output: 11/16/16 11/16/16 06:59 18:59 Intake Total 400 Output Total 200 Balance 200 - Medications Medications: Current Medications Digoxin (Lanoxin) 0.25 mg PO DAILY [facility] Last Admin: 11/15/16 08:27 Dose: 0.25 mg Escitalopram Oxalate (Lexapro) 10 mg PO DAILY [facility] Last Admin: 11/15/16 08:28 Dose: 10 mg Folic Acid (Folic Acid) 1 mg PO DAILY [facility] Last Admin: 11/15/16 08:27 Dose: 1 mg Home Med (Dorzolamide Hcl/Timolol Maleat [Dorzolamide-Timolol Eye Drops]) 1 drop BOTHEYES DAILY [facility] Home Med ([place]-3/Dha/Epa/Fish Oil [Fish Oil 1,600 Mg/5 Ml Liquid]) 5 ml PO DAILY [facility] Piperacillin Sod/Tazobactam (Sod 2.25 gm/ Sodium Chloride) 100 mls @ 100 mls/ hr IVPB Q8 [facility] Last Admin: 11/16/16 01:07 Dose: 100 mls/hr Sodium Chloride (Sodium Chloride 0.9%) 1,000 mls @ 100 mls/hr IV .Q10H [facility] Stop: 11/16/16 08:26 Last Admin: 11/16/16 05:59 Dose: 100 mls/hr Levetiracetam (Keppra) 1,000 mg PO HS [facility] Last Admin: 11/15/16 21:49 Dose: 1,000 mg Ondansetron HCl (Zofran Inj) 4 mg IVP Q6 PRN PRN Reason: Nausea/Vomiting Pantoprazole Sodium (Protonix Ec Tab) 40 mg PO DAILY [facility] Last Admin: 11/15/16 08:27 Dose: 40 mg Quetiapine Fumarate (Seroquel) 50 mg PO HS [facility] Last Admin: 11/15/16 21:49 Dose: 50 mg Tamsulosin HCl (Flomax) 0.4 mg PO HS [facility] Last Admin: 11/15/16 21:49 Dose: 0.4 mg - Labs Labs: 11/16/16 07:00 11/16/16 07:00 - Constitutional Appears: Non-toxic, No Acute Distress - Head Exam Head Exam: ATRAUMATIC, NORMOCEPHALIC - Eye Exam Eye Exam: Normal appearance. absent: Conjunctival injection, Scleral icterus - ENT Exam ENT Exam: Mucous Membranes Moist, Normal Oropharynx - Respiratory Exam Respiratory Exam: NORMAL BREATHING PATTERN. absent: Accessory Muscle Use, Respiratory Distress - Cardiovascular Exam Cardiovascular Exam: RRR - GI/Abdominal Exam GI & Abdominal Exam: Guarding (voluntary guarding to palpation of the RUQ), Soft , Tenderness (RUQ). absent: Distended - Extremities Exam Extremities Exam: absent: Calf Tenderness, Pedal Edema, Tenderness - Neurological Exam Neurological Exam: Alert, Awake, Oriented x3 - Psychiatric Exam Psychiatric exam: Normal Affect, Normal Mood - Skin Skin Exam: Dry, Intact, Warm. absent: Normal Color Additional comments: Jaundiced Assessment and Plan - Assessment and Plan (Free Text) Assessment: 89yo M w/ extensive medical hx, w/hyperbilirubinemia and likely acute on chronic cholecystitis Afebrile, VSS T. bili 4.2 down from 7.7 yesterday, AST/ALT/ALP continue to trend down WBC 3.2 down from 4.4 Plan: -Unable to obtain MRCP d/t pacemaker -HIDA scan to eval cystic duct obstruction -F/U amylase and lipase, continue to trend CBC and CMP -May need IR placement of cholecystostomy tube as pt is high risk surgical candidate -Continue NPO, IVF, Pain control and IV Abx DW Dr Faraz Randall PGY2 <David Ruth - Last Filed: 11/17/16 16:07> Objective - Vital Signs/Intake and Output Vital Signs (last 24 hours): Temp Pulse Resp BP Pulse Ox 99.3 F 69 20 143/69 95 11/17/16 07:28 11/17/16 07:28 11/17/16 07:28 11/17/16 07:28 11/17/16 07:28 - Medications Medications: Current Medications Digoxin (Lanoxin) 0.25 mg PO DAILY [facility] Last Admin: 11/17/16 08:50 Dose: 0.25 mg Escitalopram Oxalate (Lexapro) 10 mg PO DAILY [facility] Last Admin: 11/17/16 08:53 Dose: 10 mg Folic Acid (Folic Acid) 1 mg PO DAILY [facility] Last Admin: 11/17/16 08:51 Dose: 1 mg Home Med (Dorzolamide Hcl/Timolol Maleat [Dorzolamide-Timolol Eye Drops]) 1 drop BOTHEYES DAILY [facility] Last Admin: 11/17/16 08:39 Dose: 1 drop Home Med ([place]-3/Dha/Epa/Fish Oil [Fish Oil 1,600 Mg/5 Ml Liquid]) 5 ml PO DAILY [facility] Last Admin: 11/17/16 08:53 Dose: 5 ml Piperacillin Sod/Tazobactam (Sod 2.25 gm/ Sodium Chloride) 100 mls @ 100 mls/ hr IVPB Q8 [facility] Last Admin: 11/17/16 08:39 Dose: 100 mls/hr Potassium Chloride/Dextrose/Sod Cl (Potassium Chl 20 Meq In D5-1/2ns) 1,000 mls @ 80 mls/hr IV .[id number] [facility] Stop: 11/19/16 09:32 Levetiracetam (Keppra) 1,000 mg PO HS [facility] Last Admin: 11/16/16 21:23 Dose: 1,000 mg Ondansetron HCl (Zofran Inj) 4 mg IVP Q6 PRN PRN Reason: Nausea/Vomiting Pantoprazole Sodium (Protonix Ec Tab) 40 mg PO DAILY [facility] Last Admin: 11/17/16 08:51 Dose: 40 mg Quetiapine Fumarate (Seroquel) 50 mg PO [facility] Last Admin: 11/16/16 21:22 Dose: 50 mg Tamsulosin HCl (Flomax) 0.4 mg PO HS [facility] Last Admin: 11/16/16 21:22 Dose: 0.4 mg - Labs Labs: 11/17/16 06:15 11/17/16 06:15 Attending/Attestation - Attestation I have personally seen and examined this patient.: Yes I have fully participated in the care of the patient.: Yes I have reviewed all pertinent clinical information, including history, physical exam and plan: Yes Notes (Text): 11/17/16 16:06 Pt was seen and examined at bedside Agree with above note and assessment Pt with Cholelithiasis and dilated CBD LFT is trending down Labs and radiology reviewed C/w IV antibiotics Start liquid diet Plan d/w pt in detail Risk and benefit explained in detail.
[2016-11-16 08:56] LABS: AMYLASE 111 U/L (30-110); LIPASE 192 U/L (23-300)
[2016-11-16] MEDS: Potassium Ch 20mEq in D5-1/2NS 1,000 ML IV SCH ×2 (10:19→21:15)
[2016-11-16] MEDS: Pantoprazole 40 mg EC Tab PO SCH (10:22)
[2016-11-16] MEDS: Digoxin 250 mcg (0.25 mg) Tab PO SCH (10:23)
[2016-11-16] MEDS: Patient's Own Med (Dorzolamide Hcl/Timolol Maleat [Dorzolamide-Timolol Eye Drops] 1 DROP) BOTHEYES SCH (10:24)
[2016-11-16] MEDS: DHA PO SCH (10:25)
[2016-11-16] MEDS: EPA PO SCH (10:25)
[2016-11-16] MEDS: FISH OIL PO SCH (10:25)
[2016-11-16] MEDS: OMEGA PO SCH (10:25)
--- NOTE | 2016-11-16 12:35 | CP.PCM.CON ---
History of Present Illness - History of Present Illness History of Present Illness: Infectious Disease Consult Note- asked to see this patient at the request of hospitalist. 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 Pt. was found to have cholelithiasis and cholecystitis on admission and is on IV abx for this. Pt. states he feels better now and only c/o minimal discomfort in RUQ region. Denies any fever or chills, denies any nausea or vomiting, denied any diarrhea at homebut states this am had one BM that was slightly loose. His is at his bedside. 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 SHx: s/p PPM, valvular surgery, brain surgery (NOS) Allergies: contrast dyes Review of Systems - Review of Systems Review of Systems: ROS- had fever at home 1 episode, denies any fever or chills here, denies any JOHNSON, denies any cough, denies any sob, denies any chest pain, denies any nausea or vomiting, + mild right upper abdominal pain, denies any dysurea, denies any diarrhea at home, states one episode of looser BM this am only Past Patient History - Past Medical History & Family History Past Medical History?: Yes - Past Social History Alcohol: None Drugs: Denies Home Situation {Lives}: With Family - CARDIAC Hx Atrial Fibrillation: Yes Hx Cardia Arrhythmia: Yes - PULMONARY Hx Respiratory Disorders: No - NEUROLOGICAL Hx Dementia: Yes (with periods of agitation and confusion) - HEENT Hx Macular Degeneration: Yes - RENAL Hx Chronic Kidney Disease: No - ENDOCRINE/METABOLIC Hx Endocrine Disorders: No - HEMATOLOGICAL/ONCOLOGICAL Hx Anemia: Yes - INTEGUMENTARY Hx Dermatological Problems: No - MUSCULOSKELETAL/RHEUMATOLOGICAL Hx Falls: Yes (2008) - GASTROINTESTINAL Hx Gastrointestinal Disorders: No - GENITOURINARY/GYNECOLOGICAL Hx Genitourinary Disorders: No - PSYCHIATRIC Hx Psychophysiologic Disorder: No Hx Substance Use: No - SURGICAL HISTORY Hx Surgeries: Yes Other/Comment: evacuation of subdural hematoma, pacemaker, aortic valve replacement - ANESTHESIA Hx Anesthesia: Yes Hx Anesthesia Reactions: No Hx Malignant Hyperthermia: No Meds Allergies/Adverse Reactions: Allergies Allergy/AdvReac Type Severity Reaction Status Date / Time Iodinated Contrast- Oral and Allergy Intermediate RASH Verified 09/08/15 17:07 IV Dye - Medications Medications: Current Medications Digoxin (Lanoxin) 0.25 mg PO DAILY [facility] Last Admin: 11/16/16 10:23 Dose: 0.25 mg Escitalopram Oxalate (Lexapro) 10 mg PO DAILY [facility] Last Admin: 11/16/16 10:23 Dose: 10 mg Folic Acid (Folic Acid) 1 mg PO DAILY [facility] Last Admin: 11/16/16 10:23 Dose: 1 mg Home Med (Dorzolamide Hcl/Timolol Maleat [Dorzolamide-Timolol Eye Drops]) 1 drop BOTHEYES DAILY [facility] Last Admin: 11/16/16 10:24 Dose: 1 drop Home Med ([place]-3/Dha/Epa/Fish Oil [Fish Oil 1,600 Mg/5 Ml Liquid]) 5 ml PO DAILY [facility] Last Admin: 11/16/16 10:25 Dose: 5 ml Piperacillin Sod/Tazobactam (Sod 2.25 gm/ Sodium Chloride) 100 mls @ 100 mls/ hr IVPB Q8 [facility] Last Admin: 11/16/16 10:20 Dose: 100 mls/hr Potassium Chloride/Dextrose/Sod Cl (Potassium Chl 20 Meq In D5-1/2ns) 1,000 mls @ 80 mls/hr IV .[id number] [facility] Stop: 11/19/16 08:46 Last Admin: 11/16/16 10:19 Dose: 80 mls/hr Levetiracetam (Keppra) 1,000 mg PO HS [facility] Last Admin: 11/15/16 21:49 Dose: 1,000 mg Ondansetron HCl (Zofran Inj) 4 mg IVP Q6 PRN PRN Reason: Nausea/Vomiting Pantoprazole Sodium (Protonix Ec Tab) 40 mg PO DAILY [facility] Last Admin: 11/16/16 10:22 Dose: 40 mg Quetiapine Fumarate (Seroquel) 50 mg PO [facility] Last Admin: 11/15/16 21:49 Dose: 50 mg Tamsulosin HCl (Flomax) 0.4 mg PO HS [facility] Last Admin: 11/15/16 21:49 Dose: 0.4 mg Physical Exam - Constitutional Appears: Non-toxic, No Acute Distress - Eye Exam Eye Exam: EOMI, PERRL - ENT Exam ENT Exam: Normal Oropharynx - Neck Exam Neck exam: Positive for: Full Rom - Respiratory Exam Respiratory Exam: Clear to Auscultation Bilateral, NORMAL BREATHING PATTERN - Cardiovascular Exam Cardiovascular Exam: RRR, +S1, +S2 Additional comments: 3/4 murmur heard at LSB - Extremities Exam Extremities exam: Positive for: normal inspection - Neurological Exam Neurological exam: Alert, Oriented x3 Results - Vital Signs Recent Vital Signs: Last Vital Signs Temp 98.6 F 11/16/16 07:32 Pulse 61 11/16/16 07:32 Resp 20 11/16/16 07:32 BP 132/70 11/16/16 07:32 Pulse Ox 96 11/16/16 07:32 - Labs Result Diagrams: 11/16/16 07:00 11/16/16 07:00 Labs: Laboratory Results - last 24 hr 11/16/16 11/16/16 11/16/16 07:00 07:00 08:00 WBC 3.2 L RBC 3.32 L Hgb 10.1 L Hct 31.2 L MCV 94.1 H MCH 30.4 MCHC 32.3 L RDW 14.7 H Plt Count 56 L Sodium 140 Potassium 3.9 Chloride 103 Carbon Dioxide 28 Anion Gap 14 BUN 15 Creatinine 0.7 L Est GFR ( Amer) > 60 Est GFR (Non-Af Amer) > 60 Random Glucose 93 Calcium 8.5 Total Bilirubin 4.2 H AST 53 ALT 100 H D Alkaline Phosphatase 142 H Total Protein 6.8 Albumin 3.5 Globulin 3.3 Albumin/Globulin Ratio 1.1 Amylase 111 H Lipase 192 Laboratory Results - last 72 hr 11/14/16 11/14/16 11/14/16 21:14 21:21 21:24 WBC 7.4 D RBC 4.05 L Hgb 12.2 Hct 37.8 MCV 93.3 D MCH 30.1 MCHC 32.3 L RDW 14.5 Plt Count 77 L MPV 11.6 Neut % (Auto) 71.7 Lymph % (Auto) 15.1 L [place] % (Auto) 12.6 H Eos % (Auto) 0.2 Baso % (Auto) 0.4 Neut # 5.3 Lymph # 1.1 [place] # 0.9 H Eos # 0.0 Baso # 0.0 Sodium Potassium Chloride Carbon Dioxide Anion Gap BUN Creatinine Est GFR ( Amer) Est GFR (Non-Af Amer) Random Glucose Lactic Acid Calcium Total Bilirubin Direct Bilirubin 4.8 H AST ALT Alkaline Phosphatase Total Protein Albumin Globulin Albumin/Globulin Ratio Amylase Lipase Urine Color [place] Urine Clarity Cloudy Urine pH 5.0 Ur Specific [place] 1.025 Urine Protein 100 Urine Glucose (UA) Neg Urine Ketones Negative Urine Blood Negative Urine Nitrate Negative Urine Bilirubin Moderate Urine Urobilinogen 4.0 Ur Leukocyte Esterase Neg Urine RBC (Auto) 6 H Urine Microscopic WBC 5 Ur Squamous Epith Cells 1 Urine Bacteria Rare Influenza Typ A,B (EIA) Grp A Beta Strep Ag 11/14/16 11/14/16 11/14/16 21:24 21:24 21:24 WBC RBC Hgb Hct MCV MCH MCHC RDW Plt Count MPV Neut % (Auto) Lymph % (Auto) [place] % (Auto) Eos % (Auto) Baso % (Auto) Neut # Lymph # [place] # Eos # Baso # Sodium 137 Potassium 4.4 Chloride 95 L Carbon Dioxide 31 H Anion Gap 15 BUN 11 Creatinine 0.8 Est GFR ( Amer) > 60 Est GFR (Non-Af Amer) > 60 Random Glucose 173 H Lactic Acid Calcium 9.4 Total Bilirubin 8.8 H Direct Bilirubin AST 171 H ALT 191 H D Alkaline Phosphatase 198 H Total Protein 8.5 H Albumin 4.5 Globulin 4.0 H Albumin/Globulin Ratio 1.1 Amylase Lipase Urine Color Urine Clarity Urine pH Ur Specific [place] Urine Protein Urine Glucose (UA) Urine Ketones Urine Blood Urine Nitrate Urine Bilirubin Urine Urobilinogen Ur Leukocyte Esterase Urine RBC (Auto) Urine Microscopic WBC Ur Squamous Epith Cells Urine Bacteria Influenza Typ A,B (EIA) Negative for flu a/b Grp A Beta Strep Ag Negative 11/14/16 11/15/16 11/15/16 21:24 05:30 05:30 WBC 4.4 L RBC 3.46 L Hgb 10.6 L Hct 32.1 L MCV 92.6 MCH 30.7 MCHC 33.2 RDW 14.7 H Plt Count 56 L D MPV Neut % (Auto) Lymph % (Auto) [place] % (Auto) Eos % (Auto) Baso % (Auto) Neut # Lymph # [place] # Eos # Baso # Sodium 140 Potassium 3.7 Chloride 99 Carbon Dioxide 33 H Anion Gap 12 BUN 11 Creatinine 0.8 Est GFR ( Amer) > 60 Est GFR (Non-Af Amer) > 60 Random Glucose 130 H Lactic Acid 1.6 Calcium 8.7 Total Bilirubin 7.7 H Direct Bilirubin AST 103 H D ALT 144 H D Alkaline Phosphatase 158 H D Total Protein 6.9 Albumin 3.6 Globulin 3.3 Albumin/Globulin Ratio 1.1 Amylase Lipase Urine Color Urine Clarity Urine pH Ur Specific [place] Urine Protein Urine Glucose (UA) Urine Ketones Urine Blood Urine Nitrate Urine Bilirubin Urine Urobilinogen Ur Leukocyte Esterase Urine RBC (Auto) Urine Microscopic WBC Ur Squamous Epith Cells Urine Bacteria Influenza Typ A,B (EIA) Grp A Beta Strep Ag 11/16/16 11/16/16 11/16/16 07:00 07:00 08:00 WBC 3.2 L RBC 3.32 L Hgb 10.1 L Hct 31.2 L MCV 94.1 H MCH 30.4 MCHC 32.3 L RDW 14.7 H Plt Count 56 L MPV Neut % (Auto) Lymph % (Auto) [place] % (Auto) Eos % (Auto) Baso % (Auto) Neut # Lymph # [place] # Eos # Baso # Sodium 140 Potassium 3.9 Chloride 103 Carbon Dioxide 28 Anion Gap 14 BUN 15 Creatinine 0.7 L Est GFR ( Amer) > 60 Est GFR (Non-Af Amer) > 60 Random Glucose 93 Lactic Acid Calcium 8.5 Total Bilirubin 4.2 H Direct Bilirubin AST 53 ALT 100 H D Alkaline Phosphatase 142 H Total Protein 6.8 Albumin 3.5 Globulin 3.3 Albumin/Globulin Ratio 1.1 Amylase 111 H Lipase 192 Urine Color Urine Clarity Urine pH Ur Specific [place] Urine Protein Urine Glucose (UA) Urine Ketones Urine Blood Urine Nitrate Urine Bilirubin Urine Urobilinogen Ur Leukocyte Esterase Urine RBC (Auto) Urine Microscopic WBC Ur Squamous Epith Cells Urine Bacteria Influenza Typ A,B (EIA) Grp A Beta Strep Ag Microbiology 11/14/16 21:14 Urine,Clean Catch Urine Culture - Final 10-50,000 CFU/ML. MULTIPLE SPECIES. PROBABLE CONTAMINATION. 11/14/16 22:40 Throat Group A Strep Throat Culture - Final NO BETA STREP GROUP A ISOLATED. 11/15/16 00:33 Blood-Venous Blood Culture - Preliminary NO GROWTH AFTER 24 HOURS Accession No. : [id number] Patient Name / ID : MAYI LARIOS / [id number] Exam Date : 11/14/2016 22:45:47 ( Approved ) Study Comment : Sex / Age : M / 89Y Creator : Fabrice Lua MD Dictator : Fabrice Lua MD Metal Turner : Brake Repair Mechanic : Fabrice Lua MD Approver2 : Report Date : 11/15/2016 10:39:05 My Comment : PROCEDURE: CT Abdomen and Pelvis with contrast HISTORY: abd pain, elevated LFTs COMPARISON: None. TECHNIQUE: Contrast dose: 95 cc Omnipaque 300 Radiation dose: Total exam DLP = 359.22 mGy-cm. This CT exam was performed using one or more of the following dose reduction techniques: Automated exposure control, adjustment of the mA and/or kV according to patient size, and/or use of iterative reconstruction technique. FINDINGS: LOWER THORAX: Unremarkable. LIVER: Hepatic steatosis. No focal masses. No intrahepatic bile duct dilatation or perihepatic ascites. GALLBLADDER AND BILE DUCTS: Distended gallbladder, gallstones, pericholecystic fluid presumptive evidence for acute cholecystitis. PANCREAS: Unremarkable. No gross lesion or ductal dilatation. SPLEEN: Splenomegaly. Orthogonal measurements on coronal images 7.7 x 13.3 cm. Similar findings identified on a CT scan performed 09/10/2015. ADRENALS: Unremarkable. No mass. KIDNEYS AND URETERS: Unremarkable. No hydronephrosis. No solid mass. Incidental finding(s): Bilateral simple renal cysts. VASCULATURE: Unremarkable. No aortic aneurysm. BOWEL: Unremarkable. No obstruction. No gross mural thickening. APPENDIX: Normal appendix. PERITONEUM: Unremarkable. No free fluid. No free air. LYMPH NODES: Unremarkable. No enlarged lymph nodes. BLADDER: Unremarkable. REPRODUCTIVE: Unremarkable. BONES: No acute fracture. OTHER FINDINGS: None. IMPRESSION: Presumptive evidence for acute cholecystitis. This includes gallstones, distended gallbladder, gallbladder wall thickening and pericholecystic fluid. Additional benign and/or incidental findings described above. Concordant results (preliminary interpretation) provided by [facility]. Procedure Completed: 22:52 Preliminary ([facility]) Report: Dictated and Authenticated: 23:41 Final Interpretation: 10:38 November 15, 2016. Accession No. : [id number] Patient Name / ID : MAYI LARIOS / [id number] Exam Date : 11/15/2016 10:34:51 ( Approved ) Study Comment : Sex / Age : M / 89Y Creator : Fabrice Lua MD Dictator : Fabrice Lua MD Metal Turner : Brake Repair Mechanic : Fabrice Lua MD Approver2 : Report Date : 11/15/2016 11:52:00 My Comment : HISTORY: eval for cholecystitis and poss. CBD stone COMPARISON: November 14, 2016. CT abdomen TECHNIQUE: Sonographic evaluation of the right upper quadrant of the abdomen. FINDINGS: LIVER: Measures and pelvis 14.8 cm in length. Hepatopedal blood flow. Fatty infiltration manifest ultrasonographically as increased echogenicity of the liver parenchyma. No mass. No intrahepatic bile duct dilatation. GALLBLADDER: Dilated gallbladder, cholelithiasis, sludge in gallbladder wall thickening. Pericholecystic fluid identified. COMMON BILE DUCT: Measures 9.7 mm. No stones. Distal duct is not visualized obscured by overlying bowel gas. PANCREAS: Unremarkable as visualized. No mass. No ductal dilatation. RIGHT KIDNEY: Measures 6 x 9.6 cm in length. Normal echogenicity. No calculus, mass, or hydronephrosis. AORTA: No aneurysmal dilatation. IVC: Unremarkable. OTHER FINDINGS: None . IMPRESSION: Cholelithiasis, presumptive evidence for acute cholecystitis. Accession No. : [id number] Patient Name / ID : MAYI LARIOS / [id number] Exam Date : 11/14/2016 21:00:15 ( Approved ) Study Comment : Sex / Age : M / 89Y Creator : JAIME OSWALD Dictator : Metal Turner : Brake Repair Mechanic : JAIME OSWALD Approver2 : Report Date : 11/14/2016 21:53:00 My Comment : [facility] Division of Radiology [address] [place] [address] Tel. no. Patient Name: RIC SEE Pt. Address: [address] [place] [address] Rec #: [id number] [place] [address]: MD Jennifer [facility] Pt Order Location: [facility] : 1925 Male Age: 89 Order #: [id number] Reason for exam: s/p fall, abd pain Radiology CHEST TWO VIEWS (PA/LAT) Exam Date: 11/14/16 This imaging exam was performed at [facility] EXAM: XR Chest, 2 Views EXAM DATE/TIME: 11/14/2016 8:48 PM CLINICAL HISTORY: 89 years old, male; Signs and symptoms; Other: R/O pneumonia; Additional info: S/P fall, abd pain TECHNIQUE: Frontal and lateral views of the chest. COMPARISON: There are no prior studies for comparison. FINDINGS: Tubes and catheters: There is a unipolar pacemaker, apparatus in the left chest wall. The Heart, mediastinum and riley: Heart size is normal. There is a prosthetic valve. There are calcifications in the aortic knob. Aorta is mildly uncoiled. Hilar contours are unremarkable Vascularity: Pulmonary vascularity is normal. Lungs: There is mild diffuse increase in interstitial markings. There is no lobar or segmental consolidation. Pleural spaces: There is pleural thickening along the right chest wall. There are no definite effusions. Bony structures: Bony structures are osteopenic. There is median sternotomy. Osteopenia limits evaluation of the ribs. IMPRESSION: Normal heart size with pacemaker and prosthetic valve; atherosclerotic disease; no congestive failure or focal infiltrate Dictated By: Jaime Oswald MD, MD Dictated Date/Time: 11/14/162152 Signed By: Jaime Oswald MD Date Signed: 2152 Transcribed By: RALF Transcribe Date/Time : 11/14/162152 TAWNY/THEODORE Assessment & Plan (1) Cholecystitis Status: Acute (2) Pancytopenia Status: Acute (3) Cholelithiasis Status: Acute - Assessment and Plan (Free Text) Assessment: A/P- 89 year old male with valcular heart disease, PPM, COPD admitted with fever and RUQ abdominal pain found to have cholelithiasis with cholecystitis. currently stable and in NAD. afebrile now mild pancytopenia abd ct and US- cholecystits as per report await HIDA scan result. plan- advise to continue with current antibiotic (zosyn) that was initiated by the primary team. check blood and urine cx. await HIDA scan results. f/u LFTS and Bilirubiun levels. f/u with surgical input. thank you for allowing me to take part in the care of this patient case d/w patient and his and Hospitalist.
--- NOTE | 2016-11-16 12:58 | CP.PCM.PN ---
Subjective - Date & Time of Evaluation Date of Evaluation: 11/16/16 Time of Evaluation: 12:56 - Subjective Subjective: Clinically better though some persistent RUQ pain Objective - Vital Signs/Intake and Output Vital Signs (last 24 hours): Temp Pulse Resp BP Pulse Ox 98.6 F 61 20 132/70 96 11/16/16 07:32 11/16/16 07:32 11/16/16 07:32 11/16/16 07:32 11/16/16 07:32 Intake and Output: 11/16/16 11/16/16 06:59 18:59 Intake Total 400 Output Total 200 Balance 200 - Medications Medications: Current Medications Digoxin (Lanoxin) 0.25 mg PO DAILY [facility] Last Admin: 11/16/16 10:23 Dose: 0.25 mg Escitalopram Oxalate (Lexapro) 10 mg PO DAILY [facility] Last Admin: 11/16/16 10:23 Dose: 10 mg Folic Acid (Folic Acid) 1 mg PO DAILY [facility] Last Admin: 11/16/16 10:23 Dose: 1 mg Home Med (Dorzolamide Hcl/Timolol Maleat [Dorzolamide-Timolol Eye Drops]) 1 drop BOTHEYES DAILY [facility] Last Admin: 11/16/16 10:24 Dose: 1 drop Home Med ([place]-3/Dha/Epa/Fish Oil [Fish Oil 1,600 Mg/5 Ml Liquid]) 5 ml PO DAILY [facility] Last Admin: 11/16/16 10:25 Dose: 5 ml Piperacillin Sod/Tazobactam (Sod 2.25 gm/ Sodium Chloride) 100 mls @ 100 mls/ hr IVPB Q8 [facility] Last Admin: 11/16/16 10:20 Dose: 100 mls/hr Potassium Chloride/Dextrose/Sod Cl (Potassium Chl 20 Meq In D5-1/2ns) 1,000 mls @ 80 mls/hr IV .[id number] [facility] Stop: 11/19/16 08:46 Last Admin: 11/16/16 10:19 Dose: 80 mls/hr Levetiracetam (Keppra) 1,000 mg PO HS [facility] Last Admin: 11/15/16 21:49 Dose: 1,000 mg Ondansetron HCl (Zofran Inj) 4 mg IVP Q6 PRN PRN Reason: Nausea/Vomiting Pantoprazole Sodium (Protonix Ec Tab) 40 mg PO DAILY [facility] Last Admin: 11/16/16 10:22 Dose: 40 mg Quetiapine Fumarate (Seroquel) 50 mg PO [facility] Last Admin: 11/15/16 21:49 Dose: 50 mg Tamsulosin HCl (Flomax) 0.4 mg PO [facility] Last Admin: 11/15/16 21:49 Dose: 0.4 mg - Labs Labs: 11/16/16 07:00 11/16/16 07:00 - Head Exam Head Exam: ATRAUMATIC - Eye Exam Eye Exam: Normal appearance Pupil Exam: PERRL - Respiratory Exam Respiratory Exam: Clear to Ausculation Bilateral - Cardiovascular Exam Cardiovascular Exam: REGULAR RHYTHM - GI/Abdominal Exam GI & Abdominal Exam: Soft, Tenderness Additional comments: mild RUQ tenderness Assessment and Plan (1) Cholecystitis Assessment & Plan: LFTs improving and Bili has fallen. Will continue to follow with you. Status: Acute
--- NOTE | 2016-11-16 15:12 | CP.PCM.PN ---
Subjective - Date & Time of Evaluation Date of Evaluation: 11/16/16 Time of Evaluation: 15:00 - Subjective Subjective: Patient states that his pain is continuing to improve, although still present. He says that he is feeling better overall. He denies any n/v, weakness, lethargy , fever, chills overnight. Objective - Vital Signs/Intake and Output Vital Signs (last 24 hours): Temp Pulse Resp BP Pulse Ox 98.7 F 61 20 132/70 96 11/16/16 13:01 11/16/16 07:32 11/16/16 07:32 11/16/16 07:32 11/16/16 07:32 Intake and Output: 11/16/16 11/16/16 06:59 18:59 Intake Total 400 Output Total 200 Balance 200 - Medications Medications: Current Medications Digoxin (Lanoxin) 0.25 mg PO DAILY [facility] Last Admin: 11/16/16 10:23 Dose: 0.25 mg Escitalopram Oxalate (Lexapro) 10 mg PO DAILY [facility] Last Admin: 11/16/16 10:23 Dose: 10 mg Folic Acid (Folic Acid) 1 mg PO DAILY [facility] Last Admin: 11/16/16 10:23 Dose: 1 mg Home Med (Dorzolamide Hcl/Timolol Maleat [Dorzolamide-Timolol Eye Drops]) 1 drop BOTHEYES DAILY [facility] Last Admin: 11/16/16 10:24 Dose: 1 drop Home Med ([place]-3/Dha/Epa/Fish Oil [Fish Oil 1,600 Mg/5 Ml Liquid]) 5 ml PO DAILY [facility] Last Admin: 11/16/16 10:25 Dose: 5 ml Piperacillin Sod/Tazobactam (Sod 2.25 gm/ Sodium Chloride) 100 mls @ 100 mls/ hr IVPB Q8 [facility] Last Admin: 11/16/16 10:20 Dose: 100 mls/hr Potassium Chloride/Dextrose/Sod Cl (Potassium Chl 20 Meq In D5-1/2ns) 1,000 mls @ 80 mls/hr IV .[id number] [facility] Stop: 11/19/16 08:46 Last Admin: 11/16/16 10:19 Dose: 80 mls/hr Levetiracetam (Keppra) 1,000 mg PO HS [facility] Last Admin: 11/15/16 21:49 Dose: 1,000 mg Ondansetron HCl (Zofran Inj) 4 mg IVP Q6 PRN PRN Reason: Nausea/Vomiting Pantoprazole Sodium (Protonix Ec Tab) 40 mg PO DAILY [facility] Last Admin: 11/16/16 10:22 Dose: 40 mg Quetiapine Fumarate (Seroquel) 50 mg PO HS [facility] Last Admin: 11/15/16 21:49 Dose: 50 mg Tamsulosin HCl (Flomax) 0.4 mg PO [facility] Last Admin: 11/15/16 21:49 Dose: 0.4 mg - Labs Labs: 11/16/16 07:00 11/16/16 07:00 - Constitutional Appears: Well, No Acute Distress - Head Exam Head Exam: ATRAUMATIC, NORMAL INSPECTION, NORMOCEPHALIC - Eye Exam Pupil Exam: NORMAL ACCOMODATION, PERRL - ENT Exam ENT Exam: Mucous Membranes Moist, Normal Exam - Neck Exam Neck Exam: Full ROM, Normal Inspection. absent: Lymphadenopathy - Respiratory Exam Respiratory Exam: Clear to Ausculation Bilateral, NORMAL BREATHING PATTERN - Cardiovascular Exam Cardiovascular Exam: REGULAR RHYTHM, +S1 - GI/Abdominal Exam GI & Abdominal Exam: Soft, Tenderness (Mild tenderness to RUQ upon palpation), Normal Bowel Sounds. absent: Mass, Organomegaly - Extremities Exam Extremities Exam: Full ROM, Normal Capillary Refill, Normal Inspection. absent : Joint Swelling, Pedal Edema - Back Exam Back Exam: NORMAL INSPECTION - Neurological Exam Neurological Exam: Alert, Awake, CN II-XII Intact, Normal Gait, Oriented x3 Assessment and Plan - Assessment and Plan (Free Text) Plan: This is an 89 y/o male with MHx sig for A fib, valvular heart disease, and seizure disorder, admitted due to cholecystitis with transaminitis, now with improved abdominal pain and downtrending LFTs. 1) Acute Cholecystitis with cholelithiasis and dilated CBD improving, with medical management - Likely passed obstructive stone - Continue to monitor LFTs - Continue IV Zosyn due to acute cholecystitis - HIDA scan final read pending - Unable to perform MRCP due to pacemaker - Dr. Almonte on consultation for GI input, recommends continuing medical management - Dr. Oneill on consultation for ID, recommends continuing IV Zosyn - Dr. Ruth on consultation for general surgery - Blood culture shows no growth after 24 hours, gram stain pending - Urine culture showing multiple species, likely contamination - Grouop A strep throat culture negative 2) Anemia - 10.6->10.1 today - likely dilutional - continue to monitor - FOBT pending 3)Thrombocytopenia - Unclear etiology - continue to hold Lovenox - No signs of bleeding 4) Atrial fibrillation - Rate controlled - AICD placed - Continue Digoxin 0.25 mg po daily 5) Seizure disorder - Continue Keppra 1000 mg poHS 6) Fall - No squalae currently 7) DVT prophylaxis - SCDs
--- NOTE | 2016-11-16 15:48 | NM ---
PROCEDURE: Nuclear Medicine Hepatobiliary Scan HISTORY: eval for cholecystitis COMPARISON: November 14, 2016 CT abdomen and pelvis. November 15, 2016. Abdominal ultrasound TECHNIQUE: 5.8 mCi of technetium 99m Mebrofenin was administered intravenously. Planar images of the abdomen were obtained at 5 min intervals to 60 mins. Delayed images were also obtained. FINDINGS: LIVER: Timely and homogenous uptake. COMMON BILE DUCT: identified at 10 mins. GALLBLADDER: Not identified at 05:00 SMALL BOWEL: Identified at 15 mins. IMPRESSION: Abnormal Hepatobiliary Scan. The cystic duct is occluded indicative of acute cholecystitis.
[2016-11-17] MEDS: Potassium Ch 20mEq in D5-1/2NS 1,000 ML IV SCH (02:16)
[2016-11-17 06:54] LABS: HEMATOCRIT 30.9 % (35.0-51.0); MEAN CELL VOLUME 93.5 fl (80.0-94.0); MEAN CORPUSCULAR HEMOGLOBIN 30.4 pg (27.0-31.0); MEAN CORPUSCULAR HGB CONC 32.6 g/dL (33.0-37.0); RED CELL DISTRIBUTION WIDTH 14.9 % (11.5-14.5); WHITE BLOOD COUNT 3.2 K/uL (4.8-10.8)
[2016-11-17 07:10] LABS: ALB/GLOB RATIO 1.1 (1.0-2.1); ALKALINE PHOSPHATASE 140 U/L (38-126); ALT/SGPT 84 U/L (21-72); AST/SGOT 41 U/L (17-59); BILIRUBIN,TOTAL 3.4 mg/dl (0.2-1.3); BLOOD UREA NITROGEN 12 mg/dl (9-20); CALCIUM 8.6 mg/dL (8.4-10.2); CARBON DIOXIDE 30 mmol/L (22-30); CHLORIDE 100 mmol/L (98-107); GFR AFRICAN-AMERICAN > 60; GLUCOSE,RANDOM 105 mg/dL (75-110); POTASSIUM 3.7 MMOL/L (3.6-5.0); SODIUM 139 mmol/l (132-148); TOTAL PROTEIN 6.9 G/DL (6.3-8.2)
--- NOTE | 2016-11-17 07:55 | PQF GENQUE ---
Dr. Tan, Sepsis ruled in or Sepsis ruled out ? OR: Other explanation of clinical finding GI consult: Impression: Cholecystitis Assess: CT c/w cholecystitis. Elevated bili likely due to Sepsis or passed stone. Alk Phos coming down and CT showed just mild duct dilation. No indication for ERCP. Status: Acute Surgical consult: brought to ED by family for weakness, fevers , and abdominal pain --- w/ likely acute on chronic cholecystitis and hyperbilirubinemia ---Pt with cholelithiasis and Dilated CBD Attending progress note of 11/16: Diagnoses include:Acute Cholecystitis with cholelithiasis and dilated CBD improving, with medical management - Likely passed obstructive stone ; - Blood culture shows no growth after 24 hours, gram stain pending - Urine culture showing multiple species, likely contamination - Grouop A strep throat culture negative WBC:7.4->4.4->3.2 ER note: presents to the emergency department for an evaluation of 102 degree fever ( tympanic reading) ----- Temp max 11/15:99.5 B/P:111/69->96/49->96/49 IVAB This form is a permanent part of the medical record Clarification of your documentation is requested to better reflect the severity of illness and intensity of treatment of your patient. Indicators present [] Specify: [] [] Specify: [] [] Specify: [] [] Specify: [] Location in the medical record that reflects the above clinical findings: [] Treatment Provided: [] PHYSICIAN'S RESPONSE Based on your medical judgment of the clinical indicators outlined above please clarify the following: [] Practitioner response [] If unable to determine, please check the box, sign and date. Present On Admission (POA) Indicator: [] Present at the time of admission [] Not present at the time of admission [] Clinically Undetermined In responding to this query, please exercise your independent professional judgment. The fact that a question is asked does not imply that any particular answer is desired or expected. Thank you for your clarification on this documentation. If you have any questions please call. * Thank you, Madie Puckett RN BSN ext. #[phone] MTDD
--- NOTE | 2016-11-17 08:02 | PQF GENQUE ---
Dr. Tan, Please clarify the type of atrial fibrillation: if known >> Chronic >> Paroxysmal >> Permanent >> Persistent >> Other (please specify type) OR: please document >> Clinically unable to determine OR>> Unknown Attending progress note 11/16: Atrial fibrillation - Rate controlled - AICD placed - Continue Digoxin 0.25 mg po daily This form is a permanent part of the medical record Clarification of your documentation is requested to better reflect the severity of illness and intensity of treatment of your patient. Indicators present [] Specify: [] [] Specify: [] [] Specify: [] [] Specify: [] Location in the medical record that reflects the above clinical findings: [] Treatment Provided: [] PHYSICIAN'S RESPONSE Based on your medical judgment of the clinical indicators outlined above please clarify the following: [] Practitioner response [] If unable to determine, please check the box, sign and date. Present On Admission (POA) Indicator: [] Present at the time of admission [] Not present at the time of admission [] Clinically Undetermined In responding to this query, please exercise your independent professional judgment. The fact that a question is asked does not imply that any particular answer is desired or expected. Thank you for your clarification on this documentation. If you have any questions please call. * Thank you, Madie Puckett RN BSN ext. #[phone] MTDD
--- NOTE | 2016-11-17 08:38 | CP.PCM.PN ---
<Dee Randall - Last Filed: 11/17/16 08:39> Subjective - Date & Time of Evaluation Date of Evaluation: 11/17/16 Time of Evaluation: 06:50 - Subjective Subjective: Patient seen and examined at bedside this AM. NAEO. Patient denies any pain, nausea, vomiting, diarrhea, fevers, chills Objective - Vital Signs/Intake and Output Vital Signs (last 24 hours): Temp Pulse Resp BP Pulse Ox 99.3 F 69 20 143/69 95 11/17/16 07:28 11/17/16 07:28 11/17/16 07:28 11/17/16 07:28 11/17/16 07:28 - Medications Medications: Current Medications Digoxin (Lanoxin) 0.25 mg PO DAILY [facility] Last Admin: 11/16/16 10:23 Dose: 0.25 mg Escitalopram Oxalate (Lexapro) 10 mg PO DAILY [facility] Last Admin: 11/16/16 10:23 Dose: 10 mg Folic Acid (Folic Acid) 1 mg PO DAILY [facility] Last Admin: 11/16/16 10:23 Dose: 1 mg Home Med (Dorzolamide Hcl/Timolol Maleat [Dorzolamide-Timolol Eye Drops]) 1 drop BOTHEYES DAILY [facility] Last Admin: 11/16/16 10:24 Dose: 1 drop Home Med ([place]-3/Dha/Epa/Fish Oil [Fish Oil 1,600 Mg/5 Ml Liquid]) 5 ml PO DAILY [facility] Last Admin: 11/16/16 10:25 Dose: 5 ml Piperacillin Sod/Tazobactam (Sod 2.25 gm/ Sodium Chloride) 100 mls @ 100 mls/ hr IVPB Q8 [facility] Last Admin: 11/17/16 00:56 Dose: 100 mls/hr Potassium Chloride/Dextrose/Sod Cl (Potassium Chl 20 Meq In D5-1/2ns) 1,000 mls @ 80 mls/hr IV .[id number] [facility] Stop: 11/19/16 08:46 Last Admin: 11/17/16 02:16 Dose: 80 mls/hr Levetiracetam (Keppra) 1,000 mg PO HS [facility] Last Admin: 11/16/16 21:23 Dose: 1,000 mg Ondansetron HCl (Zofran Inj) 4 mg IVP Q6 PRN PRN Reason: Nausea/Vomiting Pantoprazole Sodium (Protonix Ec Tab) 40 mg PO DAILY [facility] Last Admin: 11/16/16 10:22 Dose: 40 mg Quetiapine Fumarate (Seroquel) 50 mg PO HS [facility] Last Admin: 11/16/16 21:22 Dose: 50 mg Tamsulosin HCl (Flomax) 0.4 mg PO HS [facility] Last Admin: 11/16/16 21:22 Dose: 0.4 mg - Labs Labs: 11/17/16 06:15 11/17/16 06:15 - Constitutional Appears: Non-toxic, No Acute Distress - Head Exam Head Exam: ATRAUMATIC, NORMOCEPHALIC - Eye Exam Eye Exam: Normal appearance. absent: Conjunctival injection, Scleral icterus - ENT Exam ENT Exam: Mucous Membranes Moist, Normal Oropharynx - Respiratory Exam Respiratory Exam: Respiratory Distress. absent: Accessory Muscle Use, NORMAL BREATHING PATTERN - Cardiovascular Exam Cardiovascular Exam: RRR - GI/Abdominal Exam GI & Abdominal Exam: Distended (mild distention). absent: Rigid, Tenderness Additional comments: negative banda's - Extremities Exam Extremities Exam: absent: Calf Tenderness, Pedal Edema, Tenderness - Neurological Exam Neurological Exam: Alert, Awake, Oriented x3 - Psychiatric Exam Psychiatric exam: Normal Affect, Normal Mood - Skin Skin Exam: Dry, Intact, Normal Color, Warm Assessment and Plan - Assessment and Plan (Free Text) Assessment: 89yo M w/ extensive medical hx, w/hyperbilirubinemia and acute cholecystitis Afebrile, VSS T. bili 3.4 down from 4.2 yesterday, AST wnl. ALT/ALP continue to trend down Lipase WNL HIDA scan yesterday did not visualize the gallbladder indicating acute cholecystitis, but did not demonstrate any CBD obstruction Plan: -Unable to obtain MRCP d/t pacemaker -Patient is clinically improved with no pain, labs are normalizing; therefore no plans for surgical intervention at this time given patient's age, comorbidities, and overall poor health status -Monitor FLD tolerance, advance as tolerated -IVF, Pain control and IV Abx -Continue medial management per Primary Discussed with Dr. Ruth, further recs per him Dee Randall, PGY2 <David Ruth - Last Filed: 11/18/16 18:44> Objective - Vital Signs/Intake and Output Vital Signs (last 24 hours): Temp Pulse Resp BP Pulse Ox 98.5 F 56 L 20 157/73 H 97 11/17/16 16:27 11/17/16 16:27 11/17/16 16:27 11/17/16 16:27 11/17/16 16:27 - Labs Labs: 11/17/16 06:15 11/17/16 06:15 Attending/Attestation - Attestation I have personally seen and examined this patient.: Yes I have fully participated in the care of the patient.: Yes I have reviewed all pertinent clinical information, including history, physical exam and plan: Yes Notes (Text): 11/18/16 18:42 Pt was seen and examined at bedside Agree with above note and assessment Pt with Cholelithiasis and possible Cholecystitis HIDA is s/o Cystic duct obstructin Pt is clinically improving Labs is normalizing Due to Pt age and other comorbidities, Pt is not a candidate for any surgical intervention Repeat LFT in am CArtw current mx Plan d.w pt in detail Risk and benefit explained in detail.
[2016-11-17] MEDS: Patient's Own Med (Dorzolamide Hcl/Timolol Maleat [Dorzolamide-Timolol Eye Drops] 1 DROP) BOTHEYES SCH (08:39)
[2016-11-17] MEDS: Digoxin 250 mcg (0.25 mg) Tab PO SCH (08:50)
[2016-11-17] MEDS: Pantoprazole 40 mg EC Tab PO SCH (08:51)
[2016-11-17 08:52] VITALS: PULSE 69
[2016-11-17] MEDS: OMEGA PO SCH (08:53)
[2016-11-17] MEDS: DHA PO SCH (08:53)
[2016-11-17] MEDS: EPA PO SCH (08:53)
[2016-11-17] MEDS: FISH OIL PO SCH (08:53)
[2016-11-17] MEDS ORDERED: Potassium Ch 20mEq in D5-1/2NS 1,000 ML IV SCH (09:45)
--- NOTE | 2016-11-17 12:29 | CP.PCM.PN ---
Subjective - Date & Time of Evaluation Date of Evaluation: 11/17/16 Time of Evaluation: 12:29 - Subjective Subjective: ID Note- Pt. seen and examined today with his daughter at his bedside. Pt. in good spirits and he states he feels better. denies any abdominal pain, denies any fever. is tolerating full clear diet as per nurse. Objective - Vital Signs/Intake and Output Vital Signs (last 24 hours): Temp Pulse Resp BP Pulse Ox 99.3 F 69 20 143/69 95 11/17/16 07:28 11/17/16 07:28 11/17/16 07:28 11/17/16 07:28 11/17/16 07:28 - Medications Medications: Current Medications Digoxin (Lanoxin) 0.25 mg PO DAILY [facility] Last Admin: 11/17/16 08:50 Dose: 0.25 mg Escitalopram Oxalate (Lexapro) 10 mg PO DAILY [facility] Last Admin: 11/17/16 08:53 Dose: 10 mg Folic Acid (Folic Acid) 1 mg PO DAILY [facility] Last Admin: 11/17/16 08:51 Dose: 1 mg Home Med (Dorzolamide Hcl/Timolol Maleat [Dorzolamide-Timolol Eye Drops]) 1 drop BOTHEYES DAILY [facility] Last Admin: 11/17/16 08:39 Dose: 1 drop Home Med ([place]-3/Dha/Epa/Fish Oil [Fish Oil 1,600 Mg/5 Ml Liquid]) 5 ml PO DAILY [facility] Last Admin: 11/17/16 08:53 Dose: 5 ml Piperacillin Sod/Tazobactam (Sod 2.25 gm/ Sodium Chloride) 100 mls @ 100 mls/ hr IVPB Q8 [facility] Last Admin: 11/17/16 08:39 Dose: 100 mls/hr Potassium Chloride/Dextrose/Sod Cl (Potassium Chl 20 Meq In D5-1/2ns) 1,000 mls @ 80 mls/hr IV .[id number] [facility] Stop: 11/19/16 09:32 Levetiracetam (Keppra) 1,000 mg PO HS [facility] Last Admin: 11/16/16 21:23 Dose: 1,000 mg Ondansetron HCl (Zofran Inj) 4 mg IVP Q6 PRN PRN Reason: Nausea/Vomiting Pantoprazole Sodium (Protonix Ec Tab) 40 mg PO DAILY [facility] Last Admin: 11/17/16 08:51 Dose: 40 mg Quetiapine Fumarate (Seroquel) 50 mg PO [facility] Last Admin: 11/16/16 21:22 Dose: 50 mg Tamsulosin HCl (Flomax) 0.4 mg PO HS [facility] Last Admin: 11/16/16 21:22 Dose: 0.4 mg - Labs Labs: - Additional Findings Additional findings: - Constitutional Appears: Non-toxic, No Acute Distress - Eye Exam Eye Exam: EOMI, PERRL - ENT Exam ENT Exam: Normal Oropharynx - Neck Exam Neck exam: Positive for: Full Rom - Respiratory Exam Respiratory Exam: Clear to Auscultation Bilateral, NORMAL BREATHING PATTERN - Cardiovascular Exam Cardiovascular Exam: RRR, +S1, +S2 Additional comments: 3/4 murmur heard at LSB abd exam- soft, + BS no tenderenss, minimal distention No guarding, no rebound - Extremities Exam Extremities exam: Positive for: normal inspection - Neurological Exam Neurological exam: Alert, Oriented x 3 Laboratory Results - last 72 hr 11/14/16 11/14/16 11/14/16 21:14 21:21 21:24 WBC 7.4 D RBC 4.05 L Hgb 12.2 Hct 37.8 MCV 93.3 D MCH 30.1 MCHC 32.3 L RDW 14.5 Plt Count 77 L MPV 11.6 Neut % (Auto) 71.7 Lymph % (Auto) 15.1 L Burt % (Auto) 12.6 H Eos % (Auto) 0.2 Baso % (Auto) 0.4 Neut # 5.3 Lymph # 1.1 Burt # 0.9 H Eos # 0.0 Baso # 0.0 Sodium Potassium Chloride Carbon Dioxide Anion Gap BUN Creatinine Est GFR ( Amer) Est GFR (Non-Af Amer) Random Glucose Lactic Acid Calcium Total Bilirubin Direct Bilirubin 4.8 H AST ALT Alkaline Phosphatase Total Protein Albumin Globulin Albumin/Globulin Ratio Amylase Lipase Urine Color [place] Urine Clarity Cloudy Urine pH 5.0 Ur Specific [place] 1.025 Urine Protein 100 Urine Glucose (UA) Neg Urine Ketones Negative Urine Blood Negative Urine Nitrate Negative Urine Bilirubin Moderate Urine Urobilinogen 4.0 Ur Leukocyte Esterase Neg Urine RBC (Auto) 6 H Urine Microscopic WBC 5 Ur Squamous Epith Cells 1 Urine Bacteria Rare Influenza Typ A,B (EIA) Grp A Beta Strep Ag 11/14/16 11/14/16 11/14/16 21:24 21:24 21:24 WBC RBC Hgb Hct MCV MCH MCHC RDW Plt Count MPV Neut % (Auto) Lymph % (Auto) Burt % (Auto) Eos % (Auto) Baso % (Auto) Neut # Lymph # Burt # Eos # Baso # Sodium 137 Potassium 4.4 Chloride 95 L Carbon Dioxide 31 H Anion Gap 15 BUN 11 Creatinine 0.8 Est GFR ( Amer) > 60 Est GFR (Non-Af Amer) > 60 Random Glucose 173 H Lactic Acid Calcium 9.4 Total Bilirubin 8.8 H Direct Bilirubin AST 171 H ALT 191 H D Alkaline Phosphatase 198 H Total Protein 8.5 H Albumin 4.5 Globulin 4.0 H Albumin/Globulin Ratio 1.1 Amylase Lipase Urine Color Urine Clarity Urine pH Ur Specific [place] Urine Protein Urine Glucose (UA) Urine Ketones Urine Blood Urine Nitrate Urine Bilirubin Urine Urobilinogen Ur Leukocyte Esterase Urine RBC (Auto) Urine Microscopic WBC Ur Squamous Epith Cells Urine Bacteria Influenza Typ A,B (EIA) Negative for flu a/b Grp A Beta Strep Ag Negative 11/14/16 11/15/16 11/15/16 21:24 05:30 05:30 WBC 4.4 L RBC 3.46 L Hgb 10.6 L Hct 32.1 L MCV 92.6 MCH 30.7 MCHC 33.2 RDW 14.7 H Plt Count 56 L D MPV Neut % (Auto) Lymph % (Auto) Burt % (Auto) Eos % (Auto) Baso % (Auto) Neut # Lymph # Burt # Eos # Baso # Sodium 140 Potassium 3.7 Chloride 99 Carbon Dioxide 33 H Anion Gap 12 BUN 11 Creatinine 0.8 Est GFR ( Amer) > 60 Est GFR (Non-Af Amer) > 60 Random Glucose 130 H Lactic Acid 1.6 Calcium 8.7 Total Bilirubin 7.7 H Direct Bilirubin AST 103 H D ALT 144 H D Alkaline Phosphatase 158 H D Total Protein 6.9 Albumin 3.6 Globulin 3.3 Albumin/Globulin Ratio 1.1 Amylase Lipase Urine Color Urine Clarity Urine pH Ur Specific [place] Urine Protein Urine Glucose (UA) Urine Ketones Urine Blood Urine Nitrate Urine Bilirubin Urine Urobilinogen Ur Leukocyte Esterase Urine RBC (Auto) Urine Microscopic WBC Ur Squamous Epith Cells Urine Bacteria Influenza Typ A,B (EIA) Grp A Beta Strep Ag 11/16/16 11/16/16 11/16/16 07:00 07:00 08:00 WBC 3.2 L RBC 3.32 L Hgb 10.1 L Hct 31.2 L MCV 94.1 H MCH 30.4 MCHC 32.3 L RDW 14.7 H Plt Count 56 L MPV Neut % (Auto) Lymph % (Auto) Burt % (Auto) Eos % (Auto) Baso % (Auto) Neut # Lymph # Burt # Eos # Baso # Sodium 140 Potassium 3.9 Chloride 103 Carbon Dioxide 28 Anion Gap 14 BUN 15 Creatinine 0.7 L Est GFR ( Amer) > 60 Est GFR (Non-Af Amer) > 60 Random Glucose 93 Lactic Acid Calcium 8.5 Total Bilirubin 4.2 H Direct Bilirubin AST 53 ALT 100 H D Alkaline Phosphatase 142 H Total Protein 6.8 Albumin 3.5 Globulin 3.3 Albumin/Globulin Ratio 1.1 Amylase 111 H Lipase 192 Urine Color Urine Clarity Urine pH Ur Specific [place] Urine Protein Urine Glucose (UA) Urine Ketones Urine Blood Urine Nitrate Urine Bilirubin Urine Urobilinogen Ur Leukocyte Esterase Urine RBC (Auto) Urine Microscopic WBC Ur Squamous Epith Cells Urine Bacteria Influenza Typ A,B (EIA) Grp A Beta Strep Ag 11/17/16 11/17/16 06:15 06:15 WBC 3.2 L RBC 3.30 L Hgb 10.0 L Hct 30.9 L MCV 93.5 MCH 30.4 MCHC 32.6 L RDW 14.9 H Plt Count 64 L MPV Neut % (Auto) Lymph % (Auto) Burt % (Auto) Eos % (Auto) Baso % (Auto) Neut # Lymph # Burt # Eos # Baso # Sodium 139 Potassium 3.7 Chloride 100 Carbon Dioxide 30 Anion Gap 12 BUN 12 Creatinine 0.7 L Est GFR ( Amer) > 60 Est GFR (Non-Af Amer) > 60 Random Glucose 105 Lactic Acid Calcium 8.6 Total Bilirubin 3.4 H Direct Bilirubin AST 41 ALT 84 H Alkaline Phosphatase 140 H Total Protein 6.9 Albumin 3.5 Globulin 3.3 Albumin/Globulin Ratio 1.1 Amylase Lipase Urine Color Urine Clarity Urine pH Ur Specific [place] Urine Protein Urine Glucose (UA) Urine Ketones Urine Blood Urine Nitrate Urine Bilirubin Urine Urobilinogen Ur Leukocyte Esterase Urine RBC (Auto) Urine Microscopic WBC Ur Squamous Epith Cells Urine Bacteria Influenza Typ A,B (EIA) Grp A Beta Strep Ag Microbiology 11/15/16 00:33 Blood-Venous Blood Culture - Preliminary NO GROWTH AFTER 48 HOURS 11/14/16 21:14 Urine,Clean Catch Urine Culture - Final 10-50,000 CFU/ML. MULTIPLE SPECIES. PROBABLE CONTAMINATION. 11/14/16 22:40 Throat Group A Strep Throat Culture - Final NO BETA STREP GROUP A ISOLATED. Accession No. : [id number] Patient Name / ID : MAYI LARIOS / [id number] Exam Date : 11/15/2016 04:30:00 ( Approved ) Study Comment : Sex / Age : M / 89Y Creator : Fabrice Lua MD Dictator : Fabrice Lua MD Living Coach : Customer Care Specialist : Fabrice Lua MD Approver2 : Report Date : 11/16/2016 15:46:50 My Comment : PROCEDURE: Nuclear Medicine Hepatobiliary Scan HISTORY: eval for cholecystitis COMPARISON: November 14, 2016 CT abdomen and pelvis. November 15, 2016. Abdominal ultrasound TECHNIQUE: 5.8 mCi of technetium 99m Mebrofenin was administered intravenously. Planar images of the abdomen were obtained at 5 min intervals to 60 mins. Delayed images were also obtained. FINDINGS: LIVER: Timely and homogenous uptake. COMMON BILE DUCT: identified at 10 mins. GALLBLADDER: Not identified at 05:00 SMALL BOWEL: Identified at 15 mins. IMPRESSION: Abnormal Hepatobiliary Scan. The cystic duct is occluded indicative of acute cholecystitis. Assessment and Plan (1) Cholecystitis Status: Acute (2) Pancytopenia Status: Acute (3) Cholelithiasis Status: Acute - Assessment and Plan (Free Text) Assessment: A/P- 89 year old male with valcular heart disease, PPM, COPD admitted with fever and RUQ abdominal pain found to have cholelithiasis with cholecystitis. currently stable and in NAD. afebrile now mild pancytopenia abd ct and US- cholecystits as per report hida report noted. blood cx- neg urine cx- neg t.bili and LFT trending down plan- advise to continue with current antibiotic (zosyn) that was initiated by the primary team.day #3. as per surgical note no surgical intervention. medical management. f/u LFTs and t.bili. all above d/w patient and his daughter and they verbalize full understanding of all above.
[2016-11-17 16:27] VITALS: BP 157/73; PULSE 56; TEMP 98.5; O2SAT 97
--- NOTE | 2016-11-17 16:49 | CP.PCM.DIS ---
Provider - Provider Date of Admission: 11/14/16 23:51 Attending physician: Shanique Alcocer MD Primary care physician: Dr. Stevens Consults: - Dr. Almonte on consultation for GI - Dr. Oneill on consultation for ID - Dr. Ruth on consultation for general surgery Time Spent in preparation of Discharge (in minutes): 30 Diagnosis - Discharge Diagnosis (1) Cholecystitis Status: Acute Priority: High (2) Sepsis Status: Resolved Priority: High (3) Chronic atrial fibrillation Status: Chronic Priority: Medium (4) Cholelithiasis Status: Acute (5) DVT prophylaxis Status: Chronic Priority: Medium (6) Fall Status: Acute Priority: Low (7) Pancytopenia Status: Chronic Priority: Medium Hospital Course - Lab Results Lab Results: Micro Results 11/15/16 00:30 Blood Blood Culture - Preliminary NO GROWTH AFTER 48 HOURS 11/15/16 00:33 Blood-Venous Blood Culture - Preliminary NO GROWTH AFTER 48 HOURS Most Recent Lab Values WBC 3.2 K/uL (4.8-10.8) L 11/17/16 06:15 RBC 3.30 Mil/uL (4.40-5.90) L 11/17/16 06:15 Hgb 10.0 g/dL (12.0-18.0) L 11/17/16 06:15 Hct 30.9 % (35.0-51.0) L 11/17/16 06:15 MCV 93.5 fl (80.0-94.0) 11/17/16 06:15 MCH 30.4 pg (27.0-31.0) 11/17/16 06:15 MCHC 32.6 g/dL (33.0-37.0) L 11/17/16 06:15 RDW 14.9 % (11.5-14.5) H 11/17/16 06:15 Plt Count 64 K/uL (130-400) L 11/17/16 06:15 MPV 11.6 fl (7.2-11.7) 11/14/16 21:24 Neut % (Auto) 71.7 % (50.0-75.0) 11/14/16 21:24 Lymph % (Auto) 15.1 % (20.0-40.0) L 11/14/16 21:24 Hood % (Auto) 12.6 % (0.0-10.0) H 11/14/16 21:24 Eos % (Auto) 0.2 % (0.0-4.0) 11/14/16 21:24 Baso % (Auto) 0.4 % (0.0-2.0) 11/14/16 21:24 Neut # 5.3 K/uL (1.8-7.0) 11/14/16 21:24 Lymph # 1.1 K/uL (1.0-4.3) 11/14/16 21:24 Hood # 0.9 K/uL (0.0-0.8) H 11/14/16 21:24 Eos # 0.0 K/uL (0.0-0.7) 11/14/16 21:24 Baso # 0.0 K/uL (0.0-0.2) 11/14/16 21:24 Sodium 139 mmol/l (132-148) 11/17/16 06:15 Potassium 3.7 MMOL/L (3.6-5.0) 11/17/16 06:15 Chloride 100 mmol/L (98-107) 11/17/16 06:15 Carbon Dioxide 30 mmol/L (22-30) 11/17/16 06:15 Anion Gap 12 (10-20) 11/17/16 06:15 BUN 12 mg/dl (9-20) 11/17/16 06:15 Creatinine 0.7 mg/dL (0.8-1.5) L 11/17/16 06:15 Est GFR ( Amer) > 60 11/17/16 06:15 Est GFR (Non-Af Amer) > 60 11/17/16 06:15 Random Glucose 105 mg/dL (75-110) 11/17/16 06:15 Lactic Acid 1.6 MMOL/L (0.7-2.1) 11/14/16 21:24 Calcium 8.6 mg/dL (8.4-10.2) 11/17/16 06:15 Total Bilirubin 3.4 mg/dl (0.2-1.3) H 11/17/16 06:15 Direct Bilirubin 4.8 mg/ml (0.0-0.4) H 11/14/16 21:21 AST 41 U/L (17-59) 11/17/16 06:15 ALT 84 U/L (21-72) H 11/17/16 06:15 Alkaline Phosphatase 140 U/L (38-126) H 11/17/16 06:15 Total Protein 6.9 G/DL (6.3-8.2) 11/17/16 06:15 Albumin 3.5 g/dL (3.5-5.0) 11/17/16 06:15 Globulin 3.3 gm/dL (2.2-3.9) 11/17/16 06:15 Albumin/Globulin Ratio 1.1 (1.0-2.1) 11/17/16 06:15 Amylase 111 U/L (30-110) H 11/16/16 08:00 Lipase 192 U/L (23-300) 11/16/16 08:00 Urine Color [place] (YELLOW) 11/14/16 21:14 Urine Clarity Cloudy (Clear) 11/14/16 21:14 Urine pH 5.0 (5.0-8.0) 11/14/16 21:14 Ur Specific [place] 1.025 (1.003-1.030) 11/14/16 21:14 Urine Protein 100 mg/dL (NEGATIVE) 11/14/16 21:14 Urine Glucose (UA) Neg mg/dL (Normal) 11/14/16 21:14 Urine Ketones Negative mg/dL (NEGATIVE) 11/14/16 21:14 Urine Blood Negative (NEGATIVE) 11/14/16 21:14 Urine Nitrate Negative (NEGATIVE) 11/14/16 21:14 Urine Bilirubin Moderate (NEGATIVE) 11/14/16 21:14 Urine Urobilinogen 4.0 mg/dL (0.2-1.0) 11/14/16 21:14 Ur Leukocyte Esterase Neg Michelle/uL (Negative) 11/14/16 21:14 Urine RBC (Auto) 6 /hpf (0-3) H 11/14/16 21:14 Urine Microscopic WBC 5 /hpf (0-5) 11/14/16 21:14 Ur Squamous Epith Cells 1 /hpf (0-5) 11/14/16 21:14 Urine Bacteria Rare (<OCC) 11/14/16 21:14 Influenza Typ A,B (EIA) Negative for flu a/b (NEGATIVE) 11/14/16 21:24 Grp A Beta Strep Ag Negative (NEGATIVE) 11/14/16 21:24 - Hospital Course Hospital Course: This is an 89 y/o male with MHx sig for A fib, COPD, s/p PPM, valvular heart disease, and seizure disorder, admitted due to cholecystitis with transaminitis resulting in sepsis, now with improved abdominal pain and downtrending LFTs. He was admitted on 11/15/2016. GI, general surgery, and ID consultations were obtained. During his stay he improved with medical management only, including IV antibiotics, and his sepsis is resolving. The patient is to be transferred to TCU today for rehabilitation along with IV antibiotics and for further monitoring. 1)Sepsis ruled in, resolving, secondary to Acute Cholecystitis with cholelithiasis and dilated CBD improving, with medical management - Likely passed obstructive stone - Continue to monitor LFTs - Continue IV Zosyn due to acute cholecystitis - HIDA scan final read pending - Unable to perform MRCP due to pacemaker - Dr. Almonte on consultation for GI input, recommends continuing medical management - Dr. Oneill on consultation for ID, recommends continuing IV Zosyn - Dr. Ruth on consultation for general surgery - Blood culture shows no growth after 24 hours, gram stain pending - Urine culture showing multiple species, likely contamination - Grouop A strep throat culture negative 2) Pancytopenia, likely secondary to sepsis. Patient has history of iron deficiency anemia and thrombocytopenia over the last year - Hg stable, 10.6->10.1-> 10.0 today - continue to hold Lovenox - No signs of bleeding - PLT 56->64 today 4) Atrial fibrillation, chronic - Rate controlled - AICD placed - Continue Digoxin 0.25 mg po daily 5) Seizure disorder - Continue Keppra 1000 mg poHS 6) Fall - No squalae currently 7) DVT prophylaxis - SCDs Discharge Exam - Additional Findings Additional findings: EXAM: Vitals stable and reviewed GEN: WDWN, alert, cooperative HEENT: NCAT, PERRL, EOMI Neck: supple, no lymphadenopathy CARDIO: +S1S2,irregular rate and rhythm, grade 3/4 murmur heard at the left sternal border LUNG: CTAB, NO W/R/R ABD: soft, NT, ND, no masses, no HSM EXT: no edema, pedal pulses Neuro: AAOx3, Strength equal, bilateral UE/LE Psych: normal mood, normal affect Discharge Plan - Follow Up Plan Condition: STABLE Disposition: TRANSF TO SNF Instructions: Cholecystitis (DC), Cholecystitis (GEN) Additional Instructions: Follow up with primary medical doctor after discharge.. Maintain low fat diet, no fried, greasy or spicy foods. Come back to ER for pain, nausea or vomiting, or diarrhea
== END 2016-11-17 17:00 | DRG 444 ==
LOC: H.ER 20:22 → H.ERHOLD 23:51 → H.MEDSURG1 11-15 01:23
PROVIDERS: ADMIT Internal Medicine; ATTEND Internal Medicine
DX: K80.62 Calculus of gallbladder and bile duct with acute cholecystitis without obstruction (principal); A41.9 Sepsis, unspecified organism; D61.818 Other pancytopenia; I48.2 Chronic atrial fibrillation; D69.6 Thrombocytopenia, unspecified; G40.802 Other epilepsy, not intractable, without status epilepticus; F03.90 Unspecified dementia, unspecified severity, without behavioral disturbance, psychotic disturbance, mood disturbance, and anxiety; J44.9 Chronic obstructive pulmonary disease, unspecified; D50.9 Iron deficiency anemia, unspecified; K40.90 Unilateral inguinal hernia, without obstruction or gangrene, not specified as recurrent; Z95.2 Presence of prosthetic heart valve; Z95.0 Presence of cardiac pacemaker; Z87.820 Personal history of traumatic brain injury; Z91.81 History of falling; Z91.041 Radiographic dye allergy status; Z87.891 Personal history of nicotine dependence

== ENCOUNTER 2016-11-17 10:47 | Inpatient (IN) | payer OTHER ==
[2016-11-17 17:54] VITALS: BMI 20.8
[2016-11-17] MEDS ORDERED: levETIRAcetam 100 mg/ml (5ml) Oral Syringe PO SCH ×2 (22:00)
[2016-11-18 08:39] LABS: HEMATOCRIT 30.6 % (35.0-51.0); MEAN CELL VOLUME 94.1 fl (80.0-94.0); MEAN CORPUSCULAR HEMOGLOBIN 30.4 pg (27.0-31.0); MEAN CORPUSCULAR HGB CONC 32.3 g/dL (33.0-37.0); RED CELL DISTRIBUTION WIDTH 14.7 % (11.5-14.5); WHITE BLOOD COUNT 2.9 K/uL (4.8-10.8)
[2016-11-18] MEDS ORDERED: Patient's Own Med (Dorzolamide Hcl/Timolol Maleat [Dorzolamide-Timolol Eye Drops] 1 DROP) BOTHEYES SCH (09:00)
[2016-11-18] MEDS: FISH OIL PO SCH (09:27)
[2016-11-18] MEDS: OMEGA PO SCH (09:27)
[2016-11-18] MEDS: EPA PO SCH (09:27)
[2016-11-18] MEDS: DHA PO SCH (09:27)
[2016-11-18] MEDS: Digoxin 250 mcg (0.25 mg) Tab PO SCH (09:28)
[2016-11-18] MEDS: Pantoprazole 40 mg EC Tab PO SCH ×2 (09:28→13:15)
[2016-11-18] MEDS: Dorzolamide 2% Ophth Soln OU SCH ×3 (09:30→17:28)
[2016-11-18 10:34] LABS: ALKALINE PHOSPHATASE 131 U/L (38-126); ALT/SGPT 68 U/L (21-72); AST/SGOT 44 U/L (17-59); BILIRUBIN,TOTAL 2.7 mg/dl (0.2-1.3); BLOOD UREA NITROGEN 8 mg/dl (9-20); CALCIUM 8.6 mg/dL (8.4-10.2); CARBON DIOXIDE 32 mmol/L (22-30); CHLORIDE 100 mmol/L (98-107); GFR AFRICAN-AMERICAN > 60; GLUCOSE,RANDOM 134 mg/dL (75-110); POTASSIUM 4.1 MMOL/L (3.6-5.0); SODIUM 139 mmol/l (132-148); TOTAL PROTEIN 6.9 G/DL (6.3-8.2)
--- NOTE | 2016-11-18 11:25 | CP.PCM.CON ---
History of Present Illness - History of Present Illness History of Present Illness: 89 yo male admitted for acute cholecystitis with past medical history of sick sinus syndrome VVI pacemaker, chronic afib , cerebral hemmorhage s/p fall , AVR , thrombocytopenia treated medically for cholecystitis. Denies cp or sob , comfortable at rest. Past Patient History - Past Medical History & Family History Past Medical History?: Yes - Past Social History Smoking Status: Never Smoked - CARDIAC Hx Atrial Fibrillation: Yes Hx Cardia Arrhythmia: Yes - PULMONARY Hx Respiratory Disorders: No - NEUROLOGICAL Hx Dementia: Yes (with periods of agitation and confusion) - HEENT Hx Macular Degeneration: Yes - RENAL Hx Chronic Kidney Disease: No - ENDOCRINE/METABOLIC Hx Endocrine Disorders: No - HEMATOLOGICAL/ONCOLOGICAL Hx Anemia: Yes - INTEGUMENTARY Hx Dermatological Problems: No - MUSCULOSKELETAL/RHEUMATOLOGICAL Hx Falls: Yes (2008) - GASTROINTESTINAL Hx Gastrointestinal Disorders: No - GENITOURINARY/GYNECOLOGICAL Hx Genitourinary Disorders: No - PSYCHIATRIC Hx Psychophysiologic Disorder: No Hx Substance Use: No - SURGICAL HISTORY Hx Surgeries: Yes Other/Comment: evacuation of subdural hematoma, pacemaker, aortic valve replacement - ANESTHESIA Hx Anesthesia: Yes Hx Anesthesia Reactions: No Hx Malignant Hyperthermia: No Has any member of the family had a problem w/ anesthesia?: No Meds Allergies/Adverse Reactions: Allergies Allergy/AdvReac Type Severity Reaction Status Date / Time Iodinated Contrast- Oral and Allergy Intermediate RASH Verified 16 17:07 IV Dye - Medications Medications: Current Medications Digoxin (Lanoxin) 0.25 mg PO DAILY [facility] Last Admin: 11/18/16 09:28 Dose: 0.25 mg Dorzolamide HCl (Trusopt) 1 drop OU TID [facility] Last Admin: 11/18/16 09:30 Dose: 1 drop Escitalopram Oxalate (Lexapro) 10 mg PO DAILY [facility] Last Admin: 11/18/16 09:28 Dose: 10 mg Folic Acid (Folic Acid) 1 mg PO DAILY [facility] Last Admin: 11/18/16 09:28 Dose: 1 mg Home Med ([place]-3/Dha/Epa/Fish Oil [Fish Oil 1,600 Mg/5 Ml Liquid]) 5 ml PO DAILY [facility] Last Admin: 11/18/16 09:27 Dose: 5 ml Home Med (Omeprazole [Prilosec]) 20 mg PO DAILY [facility] Last Admin: 11/18/16 09:32 Dose: 20 mg Piperacillin Sod/Tazobactam (Sod 2.25 gm/ Sodium Chloride) 100 mls @ 100 mls/ hr IVPB Q8@0500,1300,2100 [facility] Last Admin: 11/18/16 05:11 Dose: 100 mls/hr Levetiracetam (Keppra) 1,000 mg PO HS [facility] Last Admin: 11/17/16 21:36 Dose: 1,000 mg Ondansetron HCl (Zofran Inj) 4 mg IVP Q6 PRN PRN Reason: Nausea/Vomiting Pantoprazole Sodium (Protonix Ec Tab) 40 mg PO DAILY [facility] Last Admin: 11/18/16 09:28 Dose: 40 mg Quetiapine Fumarate (Seroquel) 50 mg PO [facility] Last Admin: 11/17/16 21:37 Dose: 50 mg Tamsulosin HCl (Flomax) 0.4 mg PO HS [facility] Last Admin: 11/17/16 21:37 Dose: 0.4 mg Timolol Maleate ([facility]) 1 drop OU DAILY [facility] Last Admin: 11/18/16 09:29 Dose: 1 drop Physical Exam - Head Exam Head Exam: NORMAL INSPECTION - Respiratory Exam Respiratory Exam: Clear to Auscultation Bilateral - Cardiovascular Exam Cardiovascular Exam: Systolic Murmur - GI/Abdominal Exam GI & Abdominal Exam: Normal Bowel Sounds - Extremities Exam Extremities exam: Positive for: normal inspection Results - Vital Signs Recent Vital Signs: Last Vital Signs Temp 97.8 F 11/18/16 09:00 Pulse 68 11/18/16 10:06 Resp 20 11/18/16 09:00 BP 130/70 11/18/16 09:00 Pulse Ox 90 L 11/18/16 10:06 - Labs Result Diagrams: 11/18/16 08:15 11/18/16 09:40 Labs: Laboratory Results - last 24 hr 11/18/16 11/18/16 08:15 09:40 WBC 2.9 L RBC 3.25 L Hgb 9.9 L Hct 30.6 L MCV 94.1 H MCH 30.4 MCHC 32.3 L RDW 14.7 H Plt Count 69 L Sodium 139 Potassium 4.1 Chloride 100 Carbon Dioxide 32 H Anion Gap 11 BUN 8 L Creatinine 0.6 L Est GFR ( Amer) > 60 Est GFR (Non-Af Amer) > 60 Random Glucose 134 H Calcium 8.6 Total Bilirubin 2.7 H AST 44 ALT 68 Alkaline Phosphatase 131 H Total Protein 6.9 Albumin 3.5 Globulin 3.4 Albumin/Globulin Ratio 1.0 Assessment & Plan - Assessment and Plan (Free Text) Assessment: Hemodynamically Stable No clinical evidence CHF , Sepsis Continue IV abx/ supportive care
--- NOTE | 2016-11-18 12:33 | CP.PCM.HP ---
History of Present Illness - History of Present Illness History of Present Illness: 89 y/o male with PMH of A fib, COPD, s/p PPM, valvular heart disease, and seizure disorder, admitted due to cholecystitis with transaminitis resulting in sepsis.Surgery , GI and ID were consulted. Patient was treated conservatively with IV antibiotics. He improved clinically and now transferred to TCU for continuation of IV therapy. 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 Medications: As per med rec SHx: s/p PPM, valvular surgery, brain surgery (NOS) Family Hx: no relevant findings Social Hx: Lives with family, prior history of heavy EtOH use and tobacco use but quit many years ago Surrogate: daughter, Jazmine Rivera, Present on Admission - Present on Admission Any Indicators Present on Admission: No Review of Systems - Review of Systems All systems: reviewed and no additional remarkable complaints except Past Patient History - Infectious Disease Hx of Infectious Diseases: None - Tetanus Immunizations Tetanus Immunization: Unknown - Past Medical History & Family History Past Medical History?: Yes - Past Social History Smoking Status: Never Smoked Chewing Tobacco Use: No Cigar Use: No Alcohol: None Drugs: Denies Home Situation {Lives}: With Family Domestic Violence: Negative - CARDIAC Hx Atrial Fibrillation: Yes Hx Cardia Arrhythmia: Yes - PULMONARY Hx Respiratory Disorders: No - NEUROLOGICAL Hx Dementia: Yes (with periods of agitation and confusion) - HEENT Hx Macular Degeneration: Yes - RENAL Hx Chronic Kidney Disease: No - ENDOCRINE/METABOLIC Hx Endocrine Disorders: No - HEMATOLOGICAL/ONCOLOGICAL Hx Anemia: Yes - INTEGUMENTARY Hx Dermatological Problems: No - MUSCULOSKELETAL/RHEUMATOLOGICAL Hx Falls: Yes (2008) - GASTROINTESTINAL Hx Gastrointestinal Disorders: No - GENITOURINARY/GYNECOLOGICAL Hx Genitourinary Disorders: No - PSYCHIATRIC Hx Psychophysiologic Disorder: No Hx Substance Use: No - SURGICAL HISTORY Hx Surgeries: Yes Other/Comment: evacuation of subdural hematoma, pacemaker, aortic valve replacement - ANESTHESIA Hx Anesthesia: Yes Hx Anesthesia Reactions: No Hx Malignant Hyperthermia: No Has any member of the family had a problem w/ anesthesia?: No Meds Allergies/Adverse Reactions: Allergies Allergy/AdvReac Type Severity Reaction Status Date / Time Iodinated Contrast- Oral and Allergy Intermediate RASH Verified 09/08/15 17:07 IV Dye Physical Exam - Constitutional Appears: Well, Non-toxic, No Acute Distress - Head Exam Head Exam: ATRAUMATIC, NORMAL INSPECTION, NORMOCEPHALIC - Eye Exam Eye Exam: EOMI, Normal appearance, PERRL Pupil Exam: NORMAL ACCOMODATION - ENT Exam ENT Exam: Mucous Membranes Moist, Normal Exam - Neck Exam Neck exam: Positive for: Full Rom, Normal Inspection - Respiratory Exam Respiratory Exam: Clear to Auscultation Bilateral, NORMAL BREATHING PATTERN. absent: Rales, Rhonchi, Wheezes - Cardiovascular Exam Cardiovascular Exam: REGULAR RHYTHM, RRR, +S1, +S2. absent: JVD - GI/Abdominal Exam GI & Abdominal Exam: Normal Bowel Sounds, Soft. absent: Distended, Guarding, Rebound - Rectal Exam Rectal Exam: Deferred - Extremities Exam Extremities exam: Positive for: normal capillary refill, normal inspection, pedal pulses present. Negative for: calf tenderness, pedal edema - Back Exam Back exam: NORMAL INSPECTION - Neurological Exam Neurological exam: Alert, CN II-XII Intact, Reflexes Normal - Psychiatric Exam Psychiatric exam: Normal Affect, Normal Mood - Skin Skin Exam: Dry, Intact, Normal Color, Warm Results - Vital Signs Recent Vital Signs: Last Vital Signs Temp 97.8 F 11/18/16 09:00 Pulse 68 11/18/16 10:06 Resp 20 11/18/16 09:00 BP 130/70 11/18/16 09:00 Pulse Ox 90 L 11/18/16 10:06 - Labs Result Diagrams: 11/18/16 08:15 11/18/16 09:40 Labs: Laboratory Results - last 24 hr 11/18/16 11/18/16 08:15 09:40 WBC 2.9 L RBC 3.25 L Hgb 9.9 L Hct 30.6 L MCV 94.1 H MCH 30.4 MCHC 32.3 L RDW 14.7 H Plt Count 69 L Sodium 139 Potassium 4.1 Chloride 100 Carbon Dioxide 32 H Anion Gap 11 BUN 8 L Creatinine 0.6 L Est GFR ( Amer) > 60 Est GFR (Non-Af Amer) > 60 Random Glucose 134 H Calcium 8.6 Total Bilirubin 2.7 H AST 44 ALT 68 Alkaline Phosphatase 131 H Total Protein 6.9 Albumin 3.5 Globulin 3.4 Albumin/Globulin Ratio 1.0 Assessment & Plan - Assessment and Plan (Free Text) Assessment: 89 y/o male with PMH of A fib, COPD, s/p PPM, valvular heart disease, and seizure disorder, admitted due to cholecystitis with transaminitis resulting in sepsis.Surgery , GI and ID were consulted. Patient was treated conservatively with IV antibiotics. He improved clinically and now transferred to TCU for continuation of IV therapy. At present feeling better , denies ay CP, SOB, palpitations, abdominal pain , nausea or vomiting 1.Sepsis secondary to Acute Cholecystitis with cholelithiasis -- improved Continue medical management with IV antibiotics and pain management admitted to TCU Likely passed obstructive stone Continue to monitor LFTs on IV Zosyn due to acute cholecystitis GI, surgery and ID consulted 2.Pancytopenia likely secondary to sepsis. Patient has history of iron deficiency anemia and thrombocytopenia over the last year Hgb 9.9 WBC 2.9 Plt 69 K hold Lovenox No signs of bleeding will call hematology consult 3.Atrial fibrillation chronic Rate controlled AICD in place Continue Digoxin 0.25 mg po daily 4.Seizure disorder Continue Keppra 1000 mg poHS 5.Fall No sequela currently continue PT 6. DVT prophylaxis SCDs
--- NOTE | 2016-11-18 13:04 | CP.PCM.CON ---
History of Present Illness - History of Present Illness History of Present Illness: ID consult note- HPI- patient known to me from his last admission in [address] [place] [address] for cholecystitis. Pt. is a 89 year old male with pmh of valcvular heart disease s/p AVR, PPM, COPD , who was initially admitted with fever and RUQ abdominal pain and was found to have cholelithiasis with acute cholecystitis, however, no surgical intervention as per surgical team since pt. responded well to medical management with iv antibiotics and hence he was transferred to TCU for PT and to complete his antibiotic therapy. Pt. currently states he feels well and denies any complaints. ROS- denies any fever or chills, denies any nausea or vomiting, denies any JOHNSON, denies any cough, denies any sob, jamia anyc hest pain, denies any abdominal pian, denies any diarrhea, denies any dysurea. Past Patient History - Past Medical History & Family History Past Medical History?: Yes - Past Social History Smoking Status: Never Smoked Alcohol: Occasional Drugs: Denies Home Situation {Lives}: With Family - CARDIAC Hx Cardia Arrhythmia: Yes Hx Pacemaker: Yes - PULMONARY Hx Respiratory Disorders: No - NEUROLOGICAL Hx Dementia: Yes (with periods of agitation and confusion) - HEENT Hx Macular Degeneration: Yes - RENAL Hx Chronic Kidney Disease: No - ENDOCRINE/METABOLIC Hx Endocrine Disorders: No - HEMATOLOGICAL/ONCOLOGICAL Hx Anemia: Yes - INTEGUMENTARY Hx Dermatological Problems: No - MUSCULOSKELETAL/RHEUMATOLOGICAL Hx Falls: Yes (2008) - GASTROINTESTINAL Hx Gastrointestinal Disorders: No - GENITOURINARY/GYNECOLOGICAL Hx Genitourinary Disorders: No - PSYCHIATRIC Hx Psychophysiologic Disorder: No Hx Substance Use: No - SURGICAL HISTORY Hx Surgeries: Yes Other/Comment: evacuation of subdural hematoma, pacemaker, aortic valve replacement - ANESTHESIA Hx Anesthesia: Yes Hx Anesthesia Reactions: No Hx Malignant Hyperthermia: No Has any member of the family had a problem w/ anesthesia?: No Meds Allergies/Adverse Reactions: Allergies Allergy/AdvReac Type Severity Reaction Status Date / Time Iodinated Contrast- Oral and Allergy Intermediate RASH Verified 09/08/15 17:07 IV Dye - Medications Medications: Current Medications Digoxin (Lanoxin) 0.25 mg PO DAILY [facility] Last Admin: 11/18/16 09:28 Dose: 0.25 mg Dorzolamide HCl (Trusopt) 1 drop OU TID [facility] Last Admin: 11/18/16 09:30 Dose: 1 drop Escitalopram Oxalate (Lexapro) 10 mg PO DAILY [facility] Last Admin: 11/18/16 09:28 Dose: 10 mg Folic Acid (Folic Acid) 1 mg PO DAILY [facility] Last Admin: 11/18/16 09:28 Dose: 1 mg Home Med ([place]-3/Dha/Epa/Fish Oil [Fish Oil 1,600 Mg/5 Ml Liquid]) 5 ml PO DAILY [facility] Last Admin: 11/18/16 09:27 Dose: 5 ml Piperacillin Sod/Tazobactam (Sod 2.25 gm/ Sodium Chloride) 100 mls @ 100 mls/ hr IVPB Q8@0500,1300,2100 [facility] Last Admin: 11/18/16 05:11 Dose: 100 mls/hr Levetiracetam (Keppra) 1,000 mg PO HS [facility] Ondansetron HCl (Zofran Inj) 4 mg IVP Q6 PRN PRN Reason: Nausea/Vomiting Pantoprazole Sodium (Protonix Ec Tab) 40 mg PO DAILY [facility] Last Admin: 11/18/16 09:28 Dose: 40 mg Pantoprazole Sodium (Protonix Ec Tab) 40 mg PO DAILY [facility] Quetiapine Fumarate (Seroquel) 50 mg PO HS [facility] Last Admin: 11/17/16 21:37 Dose: 50 mg Tamsulosin HCl (Flomax) 0.4 mg PO HS [facility] Last Admin: 11/17/16 21:37 Dose: 0.4 mg Timolol Maleate [facility] 1 drop OU DAILY [facility] Last Admin: 11/18/16 09:29 Dose: 1 drop Physical Exam - Constitutional Appears: Non-toxic, No Acute Distress - Head Exam Head Exam: ATRAUMATIC - Eye Exam Eye Exam: PERRL - ENT Exam ENT Exam: Normal Oropharynx - Neck Exam Neck exam: Positive for: Full Rom - Respiratory Exam Respiratory Exam: Clear to Auscultation Bilateral, NORMAL BREATHING PATTERN - Cardiovascular Exam Cardiovascular Exam: RRR, +S1, +S2 - GI/Abdominal Exam GI & Abdominal Exam: Normal Bowel Sounds, Soft Additional comments: minimal distention No tenderness no guarding, no rebound - Extremities Exam Extremities exam: Positive for: normal inspection - Neurological Exam Neurological exam: Alert, Oriented x3 Results - Vital Signs Recent Vital Signs: Last Vital Signs Temp 97.8 F 11/18/16 09:00 Pulse 68 11/18/16 10:06 Resp 20 11/18/16 09:00 BP 130/70 11/18/16 09:00 Pulse Ox 90 L 11/18/16 10:06 - Labs Result Diagrams: 11/18/16 08:15 11/18/16 09:40 Labs: Laboratory Results - last 24 hr 11/18/16 11/18/16 08:15 09:40 WBC 2.9 L RBC 3.25 L Hgb 9.9 L Hct 30.6 L MCV 94.1 H MCH 30.4 MCHC 32.3 L RDW 14.7 H Plt Count 69 L Sodium 139 Potassium 4.1 Chloride 100 Carbon Dioxide 32 H Anion Gap 11 BUN 8 L Creatinine 0.6 L Est GFR ( Amer) > 60 Est GFR (Non-Af Amer) > 60 Random Glucose 134 H Calcium 8.6 Total Bilirubin 2.7 H AST 44 ALT 68 Alkaline Phosphatase 131 H Total Protein 6.9 Albumin 3.5 Globulin 3.4 Albumin/Globulin Ratio 1.0 Microbiology 11/14/16 22:40 Throat Group A Strep Throat Culture - Final NO BETA STREP GROUP A ISOLATED. 11/14/16 21:14 Urine,Clean Catch Urine Culture - Final 10-50,000 CFU/ML. MULTIPLE SPECIES. PROBABLE CONTAMINATION. 11/15/16 00:33 Blood-Venous Blood Culture - Preliminary 11/15/16 00:33 Blood-Venous NO GROWTH AFTER 3 DAYS 11/15/16 00:30 Blood Blood Culture - Preliminary 11/15/16 00:30 Blood NO GROWTH AFTER 3 DAYS Assessment & Plan (1) Cholecystitis Status: Acute Priority: High (2) Cholelithiasis Status: Acute - Assessment and Plan (Free Text) Assessment: A/P- 89 year old male with valcular heart disease, PPM, COPD admitted with fever and RUQ abdominal pain found to have cholelithiasis with cholecystitis did well with conservative management and transferred to TCU for PT and completion of his abx. currently stable and in NAD. afebrile mild pancytopenia abd ct and US- cholecystits as per report hida report noted. blood cx- neg x 2 urine cx- neg t.bili and LFT trending down plan- advise to continue with current antibiotic (zosyn) that was initiated by the primary team.day #4. as per surgical note no surgical intervention. medical management. f/u LFTs and t.bili. all above d/w patient and his daughter and they verbalize full understanding of all above. Thank you for allowing me to take part in the care of this patient,
[2016-11-19] MEDS: Digoxin 250 mcg (0.25 mg) Tab PO SCH (09:12)
[2016-11-19] MEDS: DHA PO SCH (09:15)
[2016-11-19] MEDS: FISH OIL PO SCH (09:15)
[2016-11-19] MEDS: EPA PO SCH (09:15)
[2016-11-19] MEDS: OMEGA PO SCH (09:15)
[2016-11-19] MEDS: Dorzolamide 2% Ophth Soln OU SCH ×3 (09:18→17:03)
[2016-11-19] MEDS: Pantoprazole 40 mg EC Tab PO SCH ×2 (09:21)
[2016-11-19 10:44] LABS: ALKALINE PHOSPHATASE 125 U/L (38-126); ALT/SGPT 64 U/L (21-72); AST/SGOT 48 U/L (17-59); BILIRUBIN,TOTAL 2.3 mg/dl (0.2-1.3); BLOOD UREA NITROGEN 7 mg/dl (9-20); CALCIUM 8.8 mg/dL (8.4-10.2); CARBON DIOXIDE 31 mmol/L (22-30); CHLORIDE 99 mmol/L (98-107); GFR AFRICAN-AMERICAN > 60; GLUCOSE,RANDOM 111 mg/dL (75-110); POTASSIUM 3.9 MMOL/L (3.6-5.0); SODIUM 139 mmol/l (132-148)
--- NOTE | 2016-11-20 07:03 | CP.PCM.CON ---
History of Present Illness - History of Present Illness History of Present Illness: 89 year old male with a history of SSS s/p pacemaker, afib, cerebral hemorrhage s/p fall, chronic pancytopenia, admitted with cholecystitis, currently undergoing antibiotic therapy in TCU. The patient and his daughter report to chronic low blood counts and have been following with Dr. Romo in [place]. He was prescribed oral iron and notes his blood counts had improved with this. He denies abnormal bleeding and bruising. Past medical history: SSS s/p pacemaker, afib, cerebral hemorrhage s/p fall, pancytopenia Past surgical history: pacemaker Family history: Denies hematologic and oncologic problems Social history: Denies tobacco, former alcohol, denies illicit drug use. Allergies: Oral and IV contrast Review of systems: All remaining review of systems including HEENT, cardiovascular, respiratory, gastrointestinal, genitourinary, musculoskeletal, dermatologic, neurologic, and psychiatric are negative unless mentioned in the HPI. Past Patient History - Infectious Disease Hx of Infectious Diseases: None - Tetanus Immunizations Tetanus Immunization: Unknown - Past Medical History & Family History Past Medical History?: Yes - Past Social History Smoking Status: Never Smoked Alcohol: Occasional Drugs: Denies Home Situation {Lives}: With Family - CARDIAC Hx Cardia Arrhythmia: Yes Hx Pacemaker: Yes - PULMONARY Hx Respiratory Disorders: No - NEUROLOGICAL Hx Dementia: Yes (with periods of agitation and confusion) - HEENT Hx Macular Degeneration: Yes - RENAL Hx Chronic Kidney Disease: No - ENDOCRINE/METABOLIC Hx Endocrine Disorders: No - HEMATOLOGICAL/ONCOLOGICAL Hx Anemia: Yes - INTEGUMENTARY Hx Dermatological Problems: No - MUSCULOSKELETAL/RHEUMATOLOGICAL Hx Falls: Yes (2008) - GASTROINTESTINAL Hx Gastrointestinal Disorders: No - GENITOURINARY/GYNECOLOGICAL Hx Genitourinary Disorders: No - PSYCHIATRIC Hx Psychophysiologic Disorder: No Hx Substance Use: No - SURGICAL HISTORY Hx Surgeries: Yes Other/Comment: evacuation of subdural hematoma, pacemaker, aortic valve replacement - ANESTHESIA Hx Anesthesia: Yes Hx Anesthesia Reactions: No Hx Malignant Hyperthermia: No Has any member of the family had a problem w/ anesthesia?: No Meds Allergies/Adverse Reactions: Allergies Allergy/AdvReac Type Severity Reaction Status Date / Time Iodinated Contrast- Oral and Allergy Intermediate RASH Verified 09/08/15 17:07 IV Dye - Medications Medications: Current Medications Digoxin (Lanoxin) 0.25 mg PO DAILY [facility] Last Admin: 11/19/16 09:12 Dose: 0.25 mg Dorzolamide HCl (Trusopt) 1 drop OU TID [facility] Last Admin: 11/19/16 17:03 Dose: 1 drop Escitalopram Oxalate (Lexapro) 10 mg PO DAILY [facility] Last Admin: 11/19/16 09:14 Dose: 10 mg Folic Acid (Folic Acid) 1 mg PO DAILY [facility] Last Admin: 11/19/16 09:12 Dose: 1 mg Home Med ([place]-3/Dha/Epa/Fish Oil [Fish Oil 1,600 Mg/5 Ml Liquid]) 5 ml PO DAILY [facility] Last Admin: 11/19/16 09:15 Dose: 5 ml Piperacillin Sod/Tazobactam (Sod 2.25 gm/ Sodium Chloride) 100 mls @ 100 mls/ hr IVPB Q8@0500,1300,2100 [facility] Last Admin: 11/20/16 05:46 Dose: 100 mls/hr Iron Sucrose 200 mg/ Sodium (Chloride) 110 mls @ 110 mls/hr IVPB DAILY [facility] Stop: 11/24/16 13:46 Last Admin: 11/19/16 16:56 Dose: 110 mls/hr Levetiracetam (Keppra) 1,000 mg PO HS [facility] Last Admin: 11/19/16 22:04 Dose: 1,000 mg Ondansetron HCl (Zofran Inj) 4 mg IVP Q6 PRN PRN Reason: Nausea/Vomiting Pantoprazole Sodium (Protonix Ec Tab) 40 mg PO DAILY [facility] Last Admin: 11/19/16 09:21 Dose: Not Given Quetiapine Fumarate (Seroquel) 50 mg PO [facility] Last Admin: 11/19/16 22:04 Dose: 50 mg Tamsulosin HCl (Flomax) 0.4 mg PO [facility] Last Admin: 11/19/16 22:04 Dose: 0.4 mg Timolol Maleate (Timoptic 0.5% Ophth Soln) 1 drop OU DAILY [facility] Last Admin: 11/19/16 09:18 Dose: 1 drop Physical Exam - Head Exam Head Exam: ATRAUMATIC - Eye Exam Eye Exam: Normal appearance - ENT Exam ENT Exam: Mucous Membranes Dry - Respiratory Exam Respiratory Exam: NORMAL BREATHING PATTERN - Cardiovascular Exam Cardiovascular Exam: +S1, +S2 - GI/Abdominal Exam GI & Abdominal Exam: Normal Bowel Sounds Results - Vital Signs Recent Vital Signs: Last Vital Signs Temp 98.1 F 11/19/16 21:35 Pulse 75 11/19/16 21:35 Resp 20 11/19/16 21:35 BP 148/71 11/19/16 21:35 Pulse Ox 91 L 11/19/16 17:51 - Labs Result Diagrams: 11/18/16 08:15 11/19/16 08:43 Labs: Laboratory Results - last 24 hr 11/19/16 08:43 Sodium 139 Potassium 3.9 Chloride 99 Carbon Dioxide 31 H Anion Gap 13 BUN 7 L Creatinine 0.6 L Est GFR ( Amer) > 60 Est GFR (Non-Af Amer) > 60 Random Glucose 111 H Calcium 8.8 Total Bilirubin 2.3 H AST 48 ALT 64 Alkaline Phosphatase 125 Total Protein 7.0 Albumin 3.5 Globulin 3.5 Albumin/Globulin Ratio 1.0 Assessment & Plan (1) Pancytopenia Assessment and Plan: ?MDS borderline low iron stores; will start IV Venofer no neutropenia on prior differential can hold off on bone marrow evaluation as pt not neutropenic or requiring transfusion support 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 Status: Chronic Priority: Medium
[2016-11-20 08:03] LABS: ALB/GLOB RATIO 1.1 (1.0-2.1); ALKALINE PHOSPHATASE 148 U/L (38-126); ALT/SGPT 69 U/L (21-72); AST/SGOT 50 U/L (17-59); BLOOD UREA NITROGEN 9 mg/dl (9-20); CALCIUM 9.4 mg/dL (8.4-10.2); CARBON DIOXIDE 36 mmol/L (22-30); CHLORIDE 100 mmol/L (98-107); GFR AFRICAN-AMERICAN > 60; GLUCOSE,RANDOM 105 mg/dL (75-110); POTASSIUM 3.9 MMOL/L (3.6-5.0); SODIUM 142 mmol/l (132-148); TOTAL PROTEIN 7.3 G/DL (6.3-8.2)
[2016-11-20] MEDS: Digoxin 250 mcg (0.25 mg) Tab PO SCH (09:06)
[2016-11-20] MEDS: DHA PO SCH (09:07)
[2016-11-20] MEDS: Pantoprazole 40 mg EC Tab PO SCH (09:07)
[2016-11-20] MEDS: OMEGA PO SCH (09:07)
[2016-11-20] MEDS: FISH OIL PO SCH (09:07)
[2016-11-20] MEDS: EPA PO SCH (09:07)
[2016-11-20] MEDS: Dorzolamide 2% Ophth Soln OU SCH ×3 (09:08→17:20)
[2016-11-20] MEDS: Pantoprazole 40 mg Susp UD PO SCH (12:14)
--- NOTE | 2016-11-20 20:00 | CP.PCM.PN ---
Subjective - Date & Time of Evaluation Date of Evaluation: 11/20/16 Time of Evaluation: 19:00 - Subjective Subjective: Pt seen and examined. Appeared calm and no complaint. Daughter claimed he became confused last night and guessing that it might be caused by the Seroquel. Objective - Vital Signs/Intake and Output Vital Signs (last 24 hours): Temp Pulse Resp BP Pulse Ox 97.9 F 65 20 136/55 L 90 L 11/20/16 16:15 11/20/16 16:15 11/20/16 16:15 11/20/16 16:15 11/20/16 16:15 - Medications Medications: Current Medications Digoxin (Lanoxin) 0.25 mg PO DAILY [facility] Last Admin: 11/20/16 09:06 Dose: 0.25 mg Dorzolamide HCl (Trusopt) 1 drop OU TID [facility] Last Admin: 11/20/16 17:20 Dose: 1 drop Escitalopram Oxalate (Lexapro) 10 mg PO DAILY [facility] Last Admin: 11/20/16 09:07 Dose: 10 mg Folic Acid (Folic Acid) 1 mg PO DAILY [facility] Last Admin: 11/20/16 09:06 Dose: 1 mg Home Med ([place]-3/Dha/Epa/Fish Oil [Fish Oil 1,600 Mg/5 Ml Liquid]) 5 ml PO DAILY [facility] Last Admin: 11/20/16 09:07 Dose: 5 ml Piperacillin Sod/Tazobactam (Sod 2.25 gm/ Sodium Chloride) 100 mls @ 100 mls/ hr IVPB Q8@0500,1300,2100 [facility] Last Admin: 11/20/16 12:26 Dose: 100 mls/hr Iron Sucrose 200 mg/ Sodium (Chloride) 110 mls @ 110 mls/hr IVPB DAILY [facility] Stop: 11/24/16 13:46 Last Admin: 11/20/16 09:55 Dose: 110 mls/hr Levetiracetam (Keppra) 1,000 mg PO HS [facility] Last Admin: 11/19/16 22:04 Dose: 1,000 mg Ondansetron HCl (Zofran Inj) 4 mg IVP Q6 PRN PRN Reason: Nausea/Vomiting Pantoprazole Sodium (Protonix Susp) 40 mg PO DAILY [facility] Last Admin: 11/20/16 12:14 Dose: Not Given Quetiapine Fumarate (Seroquel) 50 mg PO HS [facility] Last Admin: 11/19/16 22:04 Dose: 50 mg Tamsulosin HCl (Flomax) 0.4 mg PO HS [facility] Last Admin: 11/19/16 22:04 Dose: 0.4 mg Timolol Maleate (Timoptic 0.5% Ophth Soln) 1 drop OU DAILY [facility] Last Admin: 11/20/16 09:08 Dose: 1 drop - Labs Labs: 11/18/16 08:15 11/20/16 07:41 - Constitutional Appears: No Acute Distress - Head Exam Head Exam: ATRAUMATIC - Eye Exam Eye Exam: absent: Scleral icterus - ENT Exam ENT Exam: Mucous Membranes Moist - Neck Exam Neck Exam: absent: Meningismus - Respiratory Exam Respiratory Exam: absent: Rhonchi, Wheezes, Respiratory Distress - Cardiovascular Exam Cardiovascular Exam: REGULAR RHYTHM, +S1, +S2 - GI/Abdominal Exam GI & Abdominal Exam: Soft. absent: Tenderness - Rectal Exam Rectal Exam: Deferred - Neurological Exam Neurological Exam: Alert - Psychiatric Exam Psychiatric exam: Flat Affect - Skin Skin Exam: Dry, Intact Assessment and Plan - Assessment and Plan (Free Text) Assessment: 89 yo male with history of A fib, COPD, s/p PPM, valvular heart disease, and seizure disorder, admitted due Sepsis secondary to cholecystitis with transaminitis Patient was treated conservatively with IV antibiotics and he improved. He was transferred to TCU for continuation of IV antibiotic and therapy. 1. Sepsis secondary to Acute Cholecystitis with cholelithiasis improved continue IV Zosyn and pain management may have passed obstructive stone monitor LFTs GI, surgery and ID consulted 2. Pancytopenia maybe secondary to sepsis. Patient has history of iron deficiency anemia and thrombocytopenia over the last year Hgb 9.9 WBC 2.9 Plt 69 K hold Lovenox No signs of bleeding Dr Robertson on consult 3. Atrial fibrillation chronic Rate controlled AICD in place Continue Digoxin 0.25 mg po daily 4. Seizure disorder Continue Keppra 1000 mg poHS 5.Fall No sequela currently continue PT 6. DVT prophylaxis SCDs
[2016-11-21] MEDS: OMEGA PO SCH (08:47)
[2016-11-21] MEDS: DHA PO SCH (08:47)
[2016-11-21] MEDS: FISH OIL PO SCH (08:47)
[2016-11-21] MEDS: EPA PO SCH (08:47)
[2016-11-21] MEDS: Digoxin 250 mcg (0.25 mg) Tab PO SCH (08:48)
[2016-11-21] MEDS: Dorzolamide 2% Ophth Soln OU SCH ×3 (08:48→17:07)
[2016-11-21] MEDS: Pantoprazole 40 mg Susp UD PO SCH (08:48)
[2016-11-22] MEDS: DHA PO SCH (09:27)
[2016-11-22] MEDS: EPA PO SCH (09:27)
[2016-11-22] MEDS: OMEGA PO SCH (09:27)
[2016-11-22] MEDS: FISH OIL PO SCH (09:27)
[2016-11-22] MEDS: Pantoprazole 40 mg Susp UD PO SCH (09:28)
[2016-11-22] MEDS: Digoxin 250 mcg (0.25 mg) Tab PO SCH (09:28)
[2016-11-22] MEDS: Dorzolamide 2% Ophth Soln OU SCH ×3 (09:29→16:53)
--- NOTE | 2016-11-22 13:14 | CP.PCM.PN ---
Subjective - Date & Time of Evaluation Date of Evaluation: 11/21/16 Time of Evaluation: 18:15 - Subjective Subjective: Feeling better. Objective - Vital Signs/Intake and Output Vital Signs (last 24 hours): Temp Pulse Resp BP Pulse Ox 98.1 F 64 20 142/68 94 L 11/22/16 09:47 11/22/16 09:47 11/22/16 09:47 11/22/16 09:47 11/22/16 09:47 - Medications Medications: Current Medications Digoxin (Lanoxin) 0.25 mg PO DAILY [facility] Last Admin: 11/22/16 09:28 Dose: 0.25 mg Dorzolamide HCl (Trusopt) 1 drop OU TID [facility] Last Admin: 11/22/16 12:41 Dose: 1 drop Escitalopram Oxalate (Lexapro) 10 mg PO DAILY [facility] Last Admin: 11/22/16 09:28 Dose: 10 mg Folic Acid (Folic Acid) 1 mg PO DAILY [facility] Last Admin: 11/22/16 09:28 Dose: 1 mg Home Med ([place]-3/Dha/Epa/Fish Oil [Fish Oil 1,600 Mg/5 Ml Liquid]) 5 ml PO DAILY [facility] Last Admin: 11/22/16 09:27 Dose: 5 ml Piperacillin Sod/Tazobactam (Sod 2.25 gm/ Sodium Chloride) 100 mls @ 100 mls/ hr IVPB Q8@0500,1300,2100 [facility] Last Admin: 11/22/16 12:41 Dose: 100 mls/hr Iron Sucrose 200 mg/ Sodium (Chloride) 110 mls @ 110 mls/hr IVPB DAILY [facility] Stop: 11/24/16 13:46 Last Admin: 11/22/16 09:29 Dose: 110 mls/hr Levetiracetam (Keppra) 1,000 mg PO HS [facility] Last Admin: 11/21/16 21:51 Dose: 1,000 mg Ondansetron HCl (Zofran Inj) 4 mg IVP Q6 PRN PRN Reason: Nausea/Vomiting Pantoprazole Sodium (Protonix Susp) 40 mg PO DAILY [facility] Last Admin: 11/22/16 09:28 Dose: 40 mg Quetiapine Fumarate (Seroquel) 50 mg PO HS [facility] Last Admin: 11/21/16 21:51 Dose: 50 mg Tamsulosin HCl (Flomax) 0.4 mg PO HS [facility] Last Admin: 11/21/16 21:51 Dose: 0.4 mg Timolol Maleate (Timoptic 0.5% Ophth Soln) 1 drop OU DAILY [facility] Last Admin: 11/22/16 09:29 Dose: 1 drop - Labs Labs: 11/18/16 08:15 11/20/16 07:41 - Head Exam Head Exam: ATRAUMATIC - ENT Exam ENT Exam: Mucous Membranes Dry - Respiratory Exam Respiratory Exam: NORMAL BREATHING PATTERN - Cardiovascular Exam Cardiovascular Exam: +S1, +S2 - GI/Abdominal Exam GI & Abdominal Exam: Normal Bowel Sounds - Extremities Exam Extremities Exam: Normal Inspection - Neurological Exam Neurological Exam: Oriented x3 - Psychiatric Exam Psychiatric exam: Normal Affect, Normal Mood - Skin Skin Exam: Warm Assessment and Plan (1) Pancytopenia Assessment & Plan: iron deficiency; on IV iron ?underlying MDS outpatient f/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
[2016-11-23] MEDS: Dorzolamide 2% Ophth Soln OU SCH ×3 (09:07→16:42)
[2016-11-23] MEDS: DHA PO SCH (09:08)
[2016-11-23] MEDS: Digoxin 250 mcg (0.25 mg) Tab PO SCH (09:08)
[2016-11-23] MEDS: OMEGA PO SCH (09:08)
[2016-11-23] MEDS: FISH OIL PO SCH (09:08)
[2016-11-23] MEDS: EPA PO SCH (09:08)
[2016-11-23] MEDS: Pantoprazole 40 mg Susp UD PO SCH (09:08)
--- NOTE | 2016-11-23 17:18 | CP.PCM.PN ---
Subjective - Date & Time of Evaluation Date of Evaluation: 11/23/16 Time of Evaluation: 17:18 - Subjective Subjective: ID note- Pt. seen and examined today in TCU . pt. in good spirits and denies any abdominal pain, denies any diarrhea, denies any nausea or vomiting, denies any fever Objective - Vital Signs/Intake and Output Vital Signs (last 24 hours): Temp Pulse Resp BP Pulse Ox 97.9 F 61 20 124/61 94 L 11/23/16 16:15 11/23/16 16:15 11/23/16 16:15 11/23/16 16:15 11/23/16 16:15 - Medications Medications: Current Medications Digoxin (Lanoxin) 0.25 mg PO DAILY [facility] Last Admin: 11/23/16 09:08 Dose: 0.25 mg Dorzolamide HCl (Trusopt) 1 drop OU TID [facility] Last Admin: 11/23/16 16:42 Dose: 1 drop Escitalopram Oxalate (Lexapro) 10 mg PO DAILY [facility] Last Admin: 11/23/16 09:09 Dose: 10 mg Folic Acid (Folic Acid) 1 mg PO DAILY [facility] Last Admin: 11/23/16 09:08 Dose: 1 mg Home Med ([place]-3/Dha/Epa/Fish Oil [Fish Oil 1,600 Mg/5 Ml Liquid]) 5 ml PO DAILY [facility] Last Admin: 11/23/16 09:08 Dose: 5 ml Iron Sucrose 200 mg/ Sodium (Chloride) 110 mls @ 110 mls/hr IVPB DAILY [facility] Stop: 11/24/16 13:46 Last Admin: 11/23/16 09:25 Dose: 110 mls/hr Levetiracetam (Keppra) 1,000 mg PO HS [facility] Last Admin: 11/22/16 22:05 Dose: 1,000 mg Ondansetron HCl (Zofran Inj) 4 mg IVP Q6 PRN PRN Reason: Nausea/Vomiting Pantoprazole Sodium (Protonix Susp) 40 mg PO DAILY [facility] Last Admin: 11/23/16 09:08 Dose: 40 mg Quetiapine Fumarate (Seroquel) 50 mg PO HS [facility] Last Admin: 11/22/16 22:04 Dose: 50 mg Tamsulosin HCl (Flomax) 0.4 mg PO [facility] Last Admin: 09/17/17 22:05 Dose: 0.4 mg Timolol Maleate (Timoptic 0.5% Ophth Soln) 1 drop OU DAILY [facility] Last Admin: 11/23/16 09:08 Dose: 1 drop - Labs Labs: - Constitutional Appears: Non-toxic, No Acute Distress - Head Exam Head Exam: ATRAUMATIC - Eye Exam Eye Exam: EOMI, PERRL - Neck Exam Neck Exam: Full ROM - Respiratory Exam Respiratory Exam: Clear to Ausculation Bilateral, NORMAL BREATHING PATTERN - Cardiovascular Exam Cardiovascular Exam: RRR, +S1, +S2 - GI/Abdominal Exam GI & Abdominal Exam: Soft, Normal Bowel Sounds Additional comments: NT, ND - Extremities Exam Extremities Exam: Normal Inspection - Neurological Exam Neurological Exam: Alert, Awake, Oriented x3 - Additional Findings Additional findings: Microbiology 11/15/16 00:33 Blood-Venous Blood Culture - Final 11/15/16 00:33 Blood-Venous Gram Stain - Final NO GROWTH AFTER 5 DAYS TEST NOT PERFORMED 11/15/16 00:30 Blood Blood Culture - Final 11/15/16 00:30 Blood NO GROWTH AFTER 5 DAYS 11/14/16 21:14 Urine,Clean Catch Urine Culture - Final 10-50,000 CFU/ML. MULTIPLE SPECIES. PROBABLE CONTAMINATION. 09/08/15 14:20 Blood Blood Culture - Final 09/08/15 14:20 Blood Gram Stain - Final NO GROWTH AFTER 5 DAYS TEST NOT PERFORMED Assessment and Plan (1) Cholecystitis Status: Acute (2) Cholelithiasis Status: Acute - Assessment and Plan (Free Text) Assessment: A/P- 89 year old male with valcular heart disease, PPM, COPD admitted with fever and RUQ abdominal pain found to have cholelithiasis with cholecystitis did well with conservative management and transferred to TCU for PT and completion of his abx. clinically much improved. has remained afebrile mild pancytopenia is being f/u by heme abd ct and US- cholecystits as per report hida report noted. blood cx- neg x 2 urine cx- neg t.bili decreased to 2 ast and alt normal values. 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 advise 1 more day and can d/c after that. as per surgical note no surgical intervention. Pt. 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 Pt. and his verbalizes full understanding of all above and agree with above plan of care.
[2016-11-24] MEDS: Digoxin 250 mcg (0.25 mg) Tab PO SCH (09:12)
[2016-11-24] MEDS: EPA PO SCH (09:13)
[2016-11-24] MEDS: DHA PO SCH (09:13)
[2016-11-24] MEDS: Pantoprazole 40 mg Susp UD PO SCH (09:13)
[2016-11-24] MEDS: FISH OIL PO SCH (09:13)
[2016-11-24] MEDS: OMEGA PO SCH (09:13)
[2016-11-24] MEDS: Dorzolamide 2% Ophth Soln OU SCH ×3 (09:15→16:03)
--- NOTE | 2016-11-24 10:17 | CP.PCM.PN ---
Subjective - Date & Time of Evaluation Date of Evaluation: 11/24/16 Time of Evaluation: 10:00 - Subjective Subjective: No complaints, seen sitting in the chair. Objective - Vital Signs/Intake and Output Vital Signs (last 24 hours): Temp Pulse Resp BP Pulse Ox 98.2 F 66 20 140/65 95 11/24/16 09:10 11/24/16 09:10 11/24/16 09:10 11/24/16 09:10 11/24/16 09:10 - Medications Medications: Current Medications Digoxin (Lanoxin) 0.25 mg PO DAILY [facility] Last Admin: 11/24/16 09:12 Dose: 0.25 mg Dorzolamide HCl (Trusopt) 1 drop OU TID [facility] Last Admin: 11/24/16 09:15 Dose: 1 drop Escitalopram Oxalate (Lexapro) 10 mg PO DAILY [facility] Last Admin: 11/24/16 09:12 Dose: 10 mg Folic Acid (Folic Acid) 1 mg PO DAILY [facility] Last Admin: 11/24/16 09:13 Dose: 1 mg Home Med ([place]-3/Dha/Epa/Fish Oil [Fish Oil 1,600 Mg/5 Ml Liquid]) 5 ml PO DAILY [facility] Last Admin: 11/24/16 09:13 Dose: 5 ml Iron Sucrose 200 mg/ Sodium (Chloride) 110 mls @ 110 mls/hr IVPB DAILY [facility] Stop: 11/24/16 13:46 Last Admin: 11/23/16 09:25 Dose: 110 mls/hr Piperacillin Sod/Tazobactam (Sod 2.25 gm/ Sodium Chloride) 100 mls @ 100 mls/ hr IVPB Q8 [facility] Last Admin: 11/24/16 09:47 Dose: 100 mls/hr Levetiracetam (Keppra) 1,000 mg PO HS [facility] Last Admin: 11/23/16 22:06 Dose: 1,000 mg Ondansetron HCl (Zofran Inj) 4 mg IVP Q6 PRN PRN Reason: Nausea/Vomiting Pantoprazole Sodium (Protonix Susp) 40 mg PO DAILY [facility] Last Admin: 11/24/16 09:13 Dose: 40 mg Quetiapine Fumarate (Seroquel) 50 mg PO HS [facility] Last Admin: 11/23/16 22:06 Dose: 50 mg Tamsulosin HCl (Flomax) 0.4 mg PO HS [facility] Last Admin: 11/23/16 22:06 Dose: 0.4 mg Timolol Maleate (Timoptic 0.5% Ophth Soln) 1 drop OU DAILY [facility] Last Admin: 11/24/16 09:14 Dose: 1 drop - Labs Labs: 11/18/16 08:15 11/20/16 07:41 - Head Exam Head Exam: ATRAUMATIC - Eye Exam Eye Exam: Normal appearance - ENT Exam ENT Exam: Mucous Membranes Dry - Respiratory Exam Respiratory Exam: NORMAL BREATHING PATTERN - Cardiovascular Exam Cardiovascular Exam: +S1, +S2 - GI/Abdominal Exam GI & Abdominal Exam: Normal Bowel Sounds Assessment and Plan (1) Pancytopenia Assessment & Plan: chronic and stable low iron stores, on IV iron 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
--- NOTE | 2016-11-24 17:31 | CP.PCM.PN ---
Subjective - Date & Time of Evaluation Date of Evaluation: 11/24/16 Time of Evaluation: 11:30 - Subjective Subjective: Pt seen and examined. Denied any complaint. Objective - Vital Signs/Intake and Output Vital Signs (last 24 hours): Temp Pulse Resp BP Pulse Ox 97.9 F 76 20 125/57 L 97 11/24/16 17:21 11/24/16 17:21 11/24/16 17:21 11/24/16 17:21 11/24/16 17:21 - Medications Medications: Current Medications Digoxin (Lanoxin) 0.25 mg PO DAILY [facility] Last Admin: 11/24/16 09:12 Dose: 0.25 mg Dorzolamide HCl (Trusopt) 1 drop OU TID [facility] Last Admin: 11/24/16 16:03 Dose: 1 drop Escitalopram Oxalate (Lexapro) 10 mg PO DAILY [facility] Last Admin: 11/24/16 09:12 Dose: 10 mg Folic Acid (Folic Acid) 1 mg PO DAILY [facility] Last Admin: 11/24/16 09:13 Dose: 1 mg Home Med ([place]-3/Dha/Epa/Fish Oil [Fish Oil 1,600 Mg/5 Ml Liquid]) 5 ml PO DAILY [facility] Last Admin: 11/24/16 09:13 Dose: 5 ml Piperacillin Sod/Tazobactam (Sod 2.25 gm/ Sodium Chloride) 100 mls @ 100 mls/ hr IVPB Q8 [facility] Last Admin: 11/24/16 16:02 Dose: 100 mls/hr Levetiracetam (Keppra) 1,000 mg PO HS [facility] Last Admin: 11/23/16 22:06 Dose: 1,000 mg Ondansetron HCl (Zofran Inj) 4 mg IVP Q6 PRN PRN Reason: Nausea/Vomiting Pantoprazole Sodium (Protonix Susp) 40 mg PO DAILY [facility] Last Admin: 11/24/16 09:13 Dose: 40 mg Quetiapine Fumarate (Seroquel) 50 mg PO HS [facility] Last Admin: 11/23/16 22:06 Dose: 50 mg Tamsulosin HCl (Flomax) 0.4 mg PO HS [facility] Last Admin: 11/23/16 22:06 Dose: 0.4 mg Timolol Maleate (Timoptic 0.5% Oph Soln) 1 drop OU DAILY [facility] Last Admin: 11/24/16 09:14 Dose: 1 drop - Labs Labs: 11/18/16 08:15 11/20/16 07:41 - Constitutional Appears: No Acute Distress - Head Exam Head Exam: ATRAUMATIC - Eye Exam Eye Exam: absent: Scleral icterus - ENT Exam ENT Exam: Mucous Membranes Moist - Neck Exam Neck Exam: absent: Meningismus - Respiratory Exam Respiratory Exam: absent: Rhonchi, Wheezes, Respiratory Distress - Cardiovascular Exam Cardiovascular Exam: REGULAR RHYTHM, +S1, +S2 - GI/Abdominal Exam GI & Abdominal Exam: Soft. absent: Tenderness - Rectal Exam Rectal Exam: Deferred - Neurological Exam Neurological Exam: Alert, Oriented x3 - Psychiatric Exam Psychiatric exam: Normal Affect - Skin Skin Exam: Dry, Intact Assessment and Plan - Assessment and Plan (Free Text) Assessment: 89 yo male with history of A fib, COPD, s/p PPM, valvular heart disease, and seizure disorder, admitted due to sepsis secondary to cholecystitis with transaminitis. Patient was treated conservatively with IV antibiotics and he improved. He was transferred to TCU for continuation of IV antibiotic and therapy. 1. Sepsis secondary to Acute Cholecystitis with cholelithiasis improved last day of Zosyn today probably passed obstructive stone monitor LFTs GI, surgery and ID consulted 2. Pancytopenia maybe secondary to sepsis. 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 Atrial fibrillation chronic Rate controlled AICD in place Continue Digoxin 0.25 mg po daily 4. Seizure disorder Continue Keppra 1000 mg PO HS 5. DVT prophylaxis SCDs
[2016-11-25] MEDS: DHA PO SCH (09:31)
[2016-11-25] MEDS: Pantoprazole 40 mg Susp UD PO SCH (09:31)
[2016-11-25] MEDS: EPA PO SCH (09:31)
[2016-11-25] MEDS: Digoxin 250 mcg (0.25 mg) Tab PO SCH (09:31)
[2016-11-25] MEDS: FISH OIL PO SCH (09:31)
[2016-11-25] MEDS: OMEGA PO SCH (09:31)
[2016-11-25] MEDS: Dorzolamide 2% Ophth Soln OU SCH ×3 (09:37→17:04)
[2016-11-25 20:20] VITALS: TEMP 98.1
[2016-11-25] MEDS: Bacitracin OINT 15GM TOP SCH (22:01)
[2016-11-26 05:04] LABS: BASO # 0.1 K/uL (0.0-0.2); EOS # 0.1 K/uL (0.0-0.7); EOS % 2.6 % (0.0-4.0); HEMATOCRIT 36.7 % (35.0-51.0); LYMPH # 1.5 K/uL (1.0-4.3); LYMPH % 44.8 % (20.0-40.0); MEAN CORPUSCULAR HEMOGLOBIN 30.7 pg (27.0-31.0); MEAN PLATELET VOLUME 10.2 fl (7.2-11.7); MONO # 0.3 K/uL (0.0-0.8); MONO % 9.4 % (0.0-10.0); NEUT # 1.4 K/uL (1.8-7.0); NEUT % 41.2 % (50.0-75.0); NRBC % 0.1 % (0.0-0.0); RED CELL DISTRIBUTION WIDTH 16.3 % (11.5-14.5); WHITE BLOOD COUNT 3.4 K/uL (4.8-10.8)
[2016-11-26 05:09] LABS: ALB/GLOB RATIO 1.2 (1.0-2.1); ALKALINE PHOSPHATASE 129 U/L (38-126); ALT/SGPT 60 U/L (21-72); AST/SGOT 48 U/L (17-59); BILIRUBIN,TOTAL 0.9 mg/dl (0.2-1.3); BLOOD UREA NITROGEN 12 mg/dl (9-20); CALCIUM 9.4 mg/dL (8.4-10.2); CARBON DIOXIDE 30 mmol/L (22-30); CHLORIDE 102 mmol/L (98-107); GFR AFRICAN-AMERICAN > 60; GLUCOSE,RANDOM 122 mg/dL (75-110); POTASSIUM 4.4 MMOL/L (3.6-5.0); SODIUM 140 mmol/l (132-148); TOTAL PROTEIN 7.4 G/DL (6.3-8.2)
[2016-11-26 08:06] VITALS: BP 141/61; PULSE 64; RESP 18; O2SAT 95
[2016-11-26] MEDS: Dorzolamide 2% Ophth Soln OU SCH ×2 (08:43→12:39)
[2016-11-26] MEDS: OMEGA PO SCH (08:45)
[2016-11-26] MEDS: DHA PO SCH (08:45)
[2016-11-26] MEDS: EPA PO SCH (08:45)
[2016-11-26] MEDS: FISH OIL PO SCH (08:45)
[2016-11-26] MEDS: Digoxin 250 mcg (0.25 mg) Tab PO SCH (08:45)
[2016-11-26] MEDS: Bacitracin OINT 15GM TOP SCH (08:46)
[2016-11-26] MEDS: Pantoprazole 40 mg Susp UD PO SCH (08:46)
[2016-11-26 08:49] VITALS: PULSE 64
--- NOTE | 2016-11-26 19:54 | CP.PCM.DIS ---
Provider - Provider Date of Admission: 11/17/16 17:55 Attending physician: Kam Tan DO Consults: Dr Marcelo Oneill Time Spent in preparation of Discharge (in minutes): 25 Diagnosis - Discharge Diagnosis (1) Sepsis Status: Resolved Priority: High Comment: secondary to cholecystitis. completed full course of IV Zosyn (2) Pancytopenia Status: Chronic Priority: Medium Comment: improving. probably secondary to sepsis. Dr Robertson on consult (3) A-fib Status: Acute Comment: rate controlled. AICD in place. continue Digoxin 0.25mg PO daily (4) Seizure Status: Acute Comment: continue Keppra 1000mg PO HS Hospital Course - Lab Results Lab Results: Most Recent Lab Values WBC 3.4 K/uL (4.8-10.8) L 11/26/16 04:30 RBC 3.83 Mil/uL (4.40-5.90) L 11/26/16 04:30 Hgb 11.7 g/dL (12.0-18.0) L 11/26/16 04:30 Hct 36.7 % (35.0-51.0) 11/26/16 04:30 MCV 96.0 fl (80.0-94.0) H 11/26/16 04:30 MCH 30.7 pg (27.0-31.0) 11/26/16 04:30 MCHC 32.0 g/dL (33.0-37.0) L 11/26/16 04:30 RDW 16.3 % (11.5-14.5) H 11/26/16 04:30 Plt Count 111 K/uL (130-400) L D 11/26/16 04:30 MPV 10.2 fl (7.2-11.7) 11/26/16 04:30 Neut % (Auto) 41.2 % (50.0-75.0) L 11/26/16 04:30 Lymph % (Auto) 44.8 % (20.0-40.0) H 11/26/16 04:30 [place] % (Auto) 9.4 % (0.0-10.0) 11/26/16 04:30 Eos % (Auto) 2.6 % (0.0-4.0) 11/26/16 04:30 Baso % (Auto) 2.0 % (0.0-2.0) 11/26/16 04:30 Neut # 1.4 K/uL (1.8-7.0) L 11/26/16 04:30 Lymph # 1.5 K/uL (1.0-4.3) 11/26/16 04:30 [place] # 0.3 K/uL (0.0-0.8) 11/26/16 04:30 Eos # 0.1 K/uL (0.0-0.7) 11/26/16 04:30 Baso # 0.1 K/uL (0.0-0.2) 11/26/16 04:30 Sodium 140 mmol/l (132-148) 11/26/16 04:30 Potassium 4.4 MMOL/L (3.6-5.0) 11/26/16 04:30 Chloride 102 mmol/L (98-107) 11/26/16 04:30 Carbon Dioxide 30 mmol/L (22-30) 11/26/16 04:30 Anion Gap 13 (10-20) 11/26/16 04:30 BUN 12 mg/dl (9-20) 11/26/16 04:30 Creatinine 0.7 mg/dL (0.8-1.5) L 11/26/16 04:30 Est GFR ( Amer) > 60 11/26/16 04:30 Est GFR (Non-Af Amer) > 60 11/26/16 04:30 Random Glucose 122 mg/dL (75-110) H 11/26/16 04:30 Calcium 9.4 mg/dL (8.4-10.2) 11/26/16 04:30 Total Bilirubin 0.9 mg/dl (0.2-1.3) 11/26/16 04:30 AST 48 U/L (17-59) 11/26/16 04:30 ALT 60 U/L (21-72) 11/26/16 04:30 Alkaline Phosphatase 129 U/L (38-126) H 11/26/16 04:30 Total Protein 7.4 G/DL (6.3-8.2) 11/26/16 04:30 Albumin 3.9 g/dL (3.5-5.0) 11/26/16 04:30 Globulin 3.4 gm/dL (2.2-3.9) 11/26/16 04:30 Albumin/Globulin Ratio 1.2 (1.0-2.1) 11/26/16 04:30 - Hospital Course Hospital Course: 89 yo male with history of AFib, COPD, s/p PPM, Valvular Heart Disease and Seizure DO admitted because of sepsis secondary to cholecystitis. He was treated conservatively with antibiotics and transferred to TCU. Patient did well and was discharged in stable condition. Discharge Exam - Head Exam Head Exam: ATRAUMATIC Discharge Plan - Follow Up Plan Condition: GOOD Disposition: HOME/ ROUTINE Instructions: Atrial Fibrillation (DC), Cholecystitis (DC), Fall Prevention (DC )
== END 2016-11-26 14:10 | DRG 872 ==
LOC: H.TCU 17:55
PROVIDERS: ADMIT Internal Medicine; ATTEND Internal Medicine
PROC: 3E03329 Introduction of Other Anti-infective into Peripheral Vein, Percutaneous Approach (ICD-10-PCS; principal; 2016-11-17)
PROC: F07M6FZ Therapeutic Exercise Treatment of Musculoskeletal System - Whole Body using Assistive, Adaptive, Supportive or Protective Equipment (ICD-10-PCS; 2016-11-17)
PROC: F08Z4FZ Home Management Treatment using Assistive, Adaptive, Supportive or Protective Equipment (ICD-10-PCS; 2016-11-17)
DX: A41.9 Sepsis, unspecified organism (principal); D61.818 Other pancytopenia; K80.00 Calculus of gallbladder with acute cholecystitis without obstruction; I48.2 Chronic atrial fibrillation; J44.9 Chronic obstructive pulmonary disease, unspecified; F03.90 Unspecified dementia, unspecified severity, without behavioral disturbance, psychotic disturbance, mood disturbance, and anxiety; G40.909 Epilepsy, unspecified, not intractable, without status epilepticus; R45.1 Restlessness and agitation; D50.9 Iron deficiency anemia, unspecified; H35.30 Unspecified macular degeneration; R41.0 Disorientation, unspecified; Z87.891 Personal history of nicotine dependence; Z95.0 Presence of cardiac pacemaker; Z95.2 Presence of prosthetic heart valve; Z95.810 Presence of automatic (implantable) cardiac defibrillator; R74.0 Nonspecific elevation of levels of transaminase and lactic acid dehydrogenase [LDH]